=== PATIENT | male | born 1980 | race Caucasian/White ===

== ENCOUNTER → 2020-05-02 08:06 | Outpatient (BNVA) | payer SELFPAY | PROVIDERS: PCP Pediatrics; Visit Provider Internal Medicine | DX: I26.99 Other pulmonary embolism without acute cor pulmonale (principal); Z51.81 Encounter for therapeutic drug level monitoring; Z79.01 Long term (current) use of anticoagulants | CPT/HCPCS: 85610 ==

== ENCOUNTER → 2020-05-30 08:10 | Outpatient (BNVA) | payer OTHER, SELFPAY | PROVIDERS: PCP Pediatrics; Visit Provider Internal Medicine | DX: I26.99 Other pulmonary embolism without acute cor pulmonale (principal); Z51.81 Encounter for therapeutic drug level monitoring; Z79.01 Long term (current) use of anticoagulants | CPT/HCPCS: 85610; 99211 ==

== ENCOUNTER → 2020-06-27 08:01 | Outpatient (BNVA) | payer OTHER, SELFPAY | PROVIDERS: PCP Pediatrics; Visit Provider Internal Medicine | DX: I26.99 Other pulmonary embolism without acute cor pulmonale (principal); Z51.81 Encounter for therapeutic drug level monitoring; Z79.01 Long term (current) use of anticoagulants | CPT/HCPCS: 85610; 99211 ==

== ENCOUNTER → 2020-07-25 08:11 | Outpatient (BNVA) | payer OTHER, SELFPAY | PROVIDERS: PCP Pediatrics; Visit Provider Internal Medicine | DX: I26.99 Other pulmonary embolism without acute cor pulmonale (principal); Z51.81 Encounter for therapeutic drug level monitoring; Z79.01 Long term (current) use of anticoagulants | CPT/HCPCS: 85610; 99211 ==

== ENCOUNTER → 2020-08-22 08:03 | Outpatient (BNVA) | payer OTHER, SELFPAY | PROVIDERS: PCP Pediatrics; Visit Provider Internal Medicine | DX: I26.99 Other pulmonary embolism without acute cor pulmonale (principal); Z51.81 Encounter for therapeutic drug level monitoring; Z79.01 Long term (current) use of anticoagulants | CPT/HCPCS: 85610; 99211 ==

== ENCOUNTER → 2020-09-05 08:00 | Outpatient (BNVA) | payer OTHER, SELFPAY | PROVIDERS: PCP Pediatrics; Visit Provider Internal Medicine | DX: I26.99 Other pulmonary embolism without acute cor pulmonale (principal); Z51.81 Encounter for therapeutic drug level monitoring; Z79.01 Long term (current) use of anticoagulants | CPT/HCPCS: 85610; 99211 ==

== ENCOUNTER → 2020-09-19 08:02 | Outpatient (BNVA) | payer OTHER, SELFPAY | PROVIDERS: PCP Pediatrics; Visit Provider Internal Medicine | DX: I26.99 Other pulmonary embolism without acute cor pulmonale (principal); Z51.81 Encounter for therapeutic drug level monitoring; Z79.01 Long term (current) use of anticoagulants | CPT/HCPCS: 85610; 99211 ==

== ENCOUNTER → 2020-10-17 08:01 | Outpatient (BNVA) | payer OTHER, SELFPAY | PROVIDERS: PCP Pediatrics; Visit Provider Internal Medicine | DX: I26.99 Other pulmonary embolism without acute cor pulmonale (principal); Z79.01 Long term (current) use of anticoagulants; Z51.81 Encounter for therapeutic drug level monitoring | CPT/HCPCS: 85610; 99211 ==

== ENCOUNTER → 2020-11-07 08:11 | Outpatient (BNVA) | payer OTHER, SELFPAY | PROVIDERS: PCP Pediatrics; Visit Provider Internal Medicine | DX: I26.99 Other pulmonary embolism without acute cor pulmonale (principal); Z51.81 Encounter for therapeutic drug level monitoring; Z79.01 Long term (current) use of anticoagulants | CPT/HCPCS: 85610; 99211 ==

== ENCOUNTER → 2020-11-28 08:02 | Outpatient (BNVA) | payer OTHER, SELFPAY | PROVIDERS: PCP Pediatrics; Visit Provider Internal Medicine | DX: I26.99 Other pulmonary embolism without acute cor pulmonale (principal); Z51.81 Encounter for therapeutic drug level monitoring; Z79.01 Long term (current) use of anticoagulants | CPT/HCPCS: 85610; 99211 ==

== ENCOUNTER → 2020-12-26 08:00 | Outpatient (BNVA) | payer OTHER, SELFPAY | PROVIDERS: PCP Pediatrics; Visit Provider Internal Medicine | DX: I26.99 Other pulmonary embolism without acute cor pulmonale (principal); Z51.81 Encounter for therapeutic drug level monitoring; Z79.01 Long term (current) use of anticoagulants | CPT/HCPCS: 85610; 99211 ==

== ENCOUNTER → 2021-01-09 08:16 | Outpatient (BNVA) | payer OTHER, SELFPAY | PROVIDERS: PCP Pediatrics; Visit Provider Internal Medicine | DX: I26.99 Other pulmonary embolism without acute cor pulmonale (principal); Z51.81 Encounter for therapeutic drug level monitoring; Z79.01 Long term (current) use of anticoagulants | CPT/HCPCS: 85610; 99211 ==

== ENCOUNTER → 2021-02-13 08:01 | Outpatient (BNVA) | payer OTHER, SELFPAY | PROVIDERS: PCP Pediatrics; Visit Provider Internal Medicine | DX: I26.99 Other pulmonary embolism without acute cor pulmonale (principal); Z51.81 Encounter for therapeutic drug level monitoring; Z79.01 Long term (current) use of anticoagulants | CPT/HCPCS: 85610; 99211 ==

== ENCOUNTER → 2021-03-13 08:03 | Outpatient (BNVA) | payer OTHER, SELFPAY | PROVIDERS: PCP Pediatrics; Visit Provider Internal Medicine | DX: I26.99 Other pulmonary embolism without acute cor pulmonale (principal); Z51.81 Encounter for therapeutic drug level monitoring; Z79.01 Long term (current) use of anticoagulants | CPT/HCPCS: 85610; 99211 ==

== ENCOUNTER → 2021-04-10 08:01 | Outpatient (BNVA) | payer OTHER, SELFPAY | PROVIDERS: PCP Pediatrics; Visit Provider Internal Medicine | DX: I26.99 Other pulmonary embolism without acute cor pulmonale (principal); Z51.81 Encounter for therapeutic drug level monitoring; Z79.01 Long term (current) use of anticoagulants | CPT/HCPCS: 85610; 99211 ==

== ENCOUNTER → 2021-05-08 08:05 | Outpatient (BNVA) | payer OTHER, SELFPAY | PROVIDERS: PCP Pediatrics; Visit Provider Internal Medicine | DX: I26.99 Other pulmonary embolism without acute cor pulmonale (principal); Z51.81 Encounter for therapeutic drug level monitoring; Z79.01 Long term (current) use of anticoagulants | CPT/HCPCS: 85610; 99211 ==

== ENCOUNTER → 2021-05-22 08:02 | Outpatient (BNVA) | payer OTHER, SELFPAY | PROVIDERS: PCP Pediatrics; Visit Provider Internal Medicine | DX: I26.99 Other pulmonary embolism without acute cor pulmonale (principal); Z51.81 Encounter for therapeutic drug level monitoring; Z79.01 Long term (current) use of anticoagulants | CPT/HCPCS: 85610; 99211 ==

== ENCOUNTER → 2021-06-19 08:00 | Outpatient (BNVA) | payer OTHER, SELFPAY | PROVIDERS: PCP Pediatrics; Visit Provider Internal Medicine | DX: I26.99 Other pulmonary embolism without acute cor pulmonale (principal); Z51.81 Encounter for therapeutic drug level monitoring; Z79.01 Long term (current) use of anticoagulants | CPT/HCPCS: 85610; 99211 ==

== ENCOUNTER → 2021-07-21 08:10 | Outpatient (BNVA) | payer OTHER, SELFPAY | PROVIDERS: PCP Pediatrics; Visit Provider Internal Medicine | DX: I26.99 Other pulmonary embolism without acute cor pulmonale (principal); Z51.81 Encounter for therapeutic drug level monitoring; Z79.01 Long term (current) use of anticoagulants | CPT/HCPCS: 85610; 99211 ==

== ENCOUNTER → 2021-08-14 08:02 | Outpatient (BNVA) | payer OTHER, SELFPAY | PROVIDERS: PCP Pediatrics; Visit Provider Internal Medicine | DX: I26.99 Other pulmonary embolism without acute cor pulmonale (principal); Z51.81 Encounter for therapeutic drug level monitoring; Z79.01 Long term (current) use of anticoagulants | CPT/HCPCS: 85610; 99211 ==

== ENCOUNTER → 2021-09-11 08:02 | Outpatient (BNVA) | payer OTHER, SELFPAY | PROVIDERS: PCP Pediatrics; Visit Provider Internal Medicine | DX: I26.99 Other pulmonary embolism without acute cor pulmonale (principal); Z51.81 Encounter for therapeutic drug level monitoring; Z79.01 Long term (current) use of anticoagulants | CPT/HCPCS: 85610; 99211 ==

== ENCOUNTER → 2021-10-13 08:02 | Outpatient (BNVA) | payer OTHER, SELFPAY | PROVIDERS: PCP Pediatrics; Visit Provider Internal Medicine | DX: I26.99 Other pulmonary embolism without acute cor pulmonale (principal); Z51.81 Encounter for therapeutic drug level monitoring; Z79.01 Long term (current) use of anticoagulants | CPT/HCPCS: 85610; 99211 ==

== ENCOUNTER → 2021-11-13 08:07 | Outpatient (BNVA) | payer OTHER, SELFPAY | PROVIDERS: PCP Pediatrics; Visit Provider Internal Medicine | DX: I26.99 Other pulmonary embolism without acute cor pulmonale (principal); Z79.01 Long term (current) use of anticoagulants; Z51.81 Encounter for therapeutic drug level monitoring | CPT/HCPCS: 85610; 99211 ==

== ENCOUNTER → 2021-12-11 08:03 | Outpatient (BNVA) | payer OTHER, SELFPAY | PROVIDERS: PCP Pediatrics; Visit Provider Internal Medicine | DX: I26.99 Other pulmonary embolism without acute cor pulmonale (principal); Z79.01 Long term (current) use of anticoagulants; Z51.81 Encounter for therapeutic drug level monitoring | CPT/HCPCS: 85610; 99211 ==

== ENCOUNTER → 2022-01-08 08:04 | Outpatient (BNVA) | payer OTHER, SELFPAY | PROVIDERS: PCP Pediatrics; Visit Provider Internal Medicine | DX: I26.99 Other pulmonary embolism without acute cor pulmonale (principal); Z51.81 Encounter for therapeutic drug level monitoring; Z79.01 Long term (current) use of anticoagulants | CPT/HCPCS: 85610; 99211 ==

== ENCOUNTER → 2022-02-03 08:21 | Outpatient (BNVA) | payer OTHER, SELFPAY | PROVIDERS: PCP Pediatrics; Visit Provider Internal Medicine | DX: I26.99 Other pulmonary embolism without acute cor pulmonale (principal); Z51.81 Encounter for therapeutic drug level monitoring; Z79.01 Long term (current) use of anticoagulants | CPT/HCPCS: 85610; 99211 ==

== ENCOUNTER → 2022-03-03 08:00 | Outpatient (BNVA) | payer OTHER, SELFPAY | PROVIDERS: PCP Pediatrics; Visit Provider Internal Medicine | DX: I26.99 Other pulmonary embolism without acute cor pulmonale (principal); Z51.81 Encounter for therapeutic drug level monitoring; Z79.01 Long term (current) use of anticoagulants | CPT/HCPCS: 85610; 99211 ==

== ENCOUNTER → 2022-03-31 08:19 | Outpatient (BNVA) | payer OTHER, SELFPAY | PROVIDERS: PCP Pediatrics; Visit Provider Internal Medicine | DX: I26.99 Other pulmonary embolism without acute cor pulmonale (principal); Z51.81 Encounter for therapeutic drug level monitoring; Z79.01 Long term (current) use of anticoagulants | CPT/HCPCS: 85610; 99211 ==

== ENCOUNTER → 2022-04-28 08:05 | Outpatient (BNVA) | payer OTHER, SELFPAY | PROVIDERS: PCP Pediatrics; Visit Provider Internal Medicine | DX: I26.99 Other pulmonary embolism without acute cor pulmonale (principal); Z79.01 Long term (current) use of anticoagulants; Z51.81 Encounter for therapeutic drug level monitoring | CPT/HCPCS: 85610; 99211 ==

== ENCOUNTER → 2022-05-26 08:04 | Outpatient (BNVA) | payer OTHER, SELFPAY | PROVIDERS: PCP Pediatrics; Visit Provider Internal Medicine | DX: I26.99 Other pulmonary embolism without acute cor pulmonale (principal); Z79.01 Long term (current) use of anticoagulants; Z51.81 Encounter for therapeutic drug level monitoring | CPT/HCPCS: 85610; 99211 ==

== ENCOUNTER → 2022-06-23 08:06 | Outpatient (BNVA) | payer OTHER, SELFPAY | PROVIDERS: PCP Pediatrics; Visit Provider Internal Medicine | DX: I26.99 Other pulmonary embolism without acute cor pulmonale (principal); Z79.01 Long term (current) use of anticoagulants; Z51.81 Encounter for therapeutic drug level monitoring | CPT/HCPCS: 85610; 99211 ==

== ENCOUNTER → 2022-07-21 08:00 | Outpatient (BNVA) | payer BC, SELFPAY | PROVIDERS: PCP Pediatrics; Visit Provider Internal Medicine | DX: I26.99 Other pulmonary embolism without acute cor pulmonale (principal); Z51.81 Encounter for therapeutic drug level monitoring; Z79.01 Long term (current) use of anticoagulants | CPT/HCPCS: 85610; 99211 ==

== ENCOUNTER → 2022-08-18 08:05 | Outpatient (BNVA) | payer BC, SELFPAY | PROVIDERS: PCP Pediatrics; Visit Provider Internal Medicine | DX: I26.99 Other pulmonary embolism without acute cor pulmonale (principal); Z51.81 Encounter for therapeutic drug level monitoring; Z79.01 Long term (current) use of anticoagulants | CPT/HCPCS: 85610; 99211 ==

== ENCOUNTER → 2022-09-15 08:00 | Outpatient (BNVA) | payer BC, SELFPAY | PROVIDERS: PCP Pediatrics; Visit Provider Internal Medicine | DX: I26.99 Other pulmonary embolism without acute cor pulmonale (principal); Z51.81 Encounter for therapeutic drug level monitoring; Z79.01 Long term (current) use of anticoagulants | CPT/HCPCS: 85610; 99211 ==

== ENCOUNTER → 2022-10-13 08:14 | Outpatient (BNVA) | payer BC, SELFPAY | PROVIDERS: PCP Pediatrics; Visit Provider Internal Medicine | DX: I26.99 Other pulmonary embolism without acute cor pulmonale (principal); Z51.81 Encounter for therapeutic drug level monitoring; Z79.01 Long term (current) use of anticoagulants | CPT/HCPCS: 85610; 99211 ==

== ENCOUNTER → 2022-11-10 07:57 | Outpatient (BNVA) | payer BC, SELFPAY | PROVIDERS: PCP Pediatrics; Visit Provider Internal Medicine | DX: Z51.81 Encounter for therapeutic drug level monitoring (principal); Z79.01 Long term (current) use of anticoagulants; I26.99 Other pulmonary embolism without acute cor pulmonale | CPT/HCPCS: 85610; 99211 ==

== ENCOUNTER → 2022-12-08 08:07 | Outpatient (BNVA) | payer BC, SELFPAY | PROVIDERS: PCP Pediatrics; Visit Provider Internal Medicine | DX: Z51.81 Encounter for therapeutic drug level monitoring (principal); Z79.01 Long term (current) use of anticoagulants; I26.99 Other pulmonary embolism without acute cor pulmonale | CPT/HCPCS: 85610; 99211 ==

== ENCOUNTER → 2023-01-05 08:04 | Outpatient (BNVA) | payer BC, SELFPAY | PROVIDERS: PCP Pediatrics; Visit Provider Internal Medicine | DX: Z51.81 Encounter for therapeutic drug level monitoring (principal); Z79.01 Long term (current) use of anticoagulants; I26.99 Other pulmonary embolism without acute cor pulmonale | CPT/HCPCS: 85610; 99211 ==

== ENCOUNTER 2023-02-02 08:02 | Outpatient (AMB) | payer BC, SELFPAY ==
[2023-02-02 08:12] LABS: Prothrombin Time Whole Bld POC 53.1 sec (11.1-13.5); ~PT, ~INR - Anti Coag Clinic 4.4 (0.9-1.1)
--- NOTE | 2023-02-02 08:12 | MHC.OFFVISCO ---
Intake Intake Visit Reasons: Anticoagulation Allergies Sulfa (Sulfonamide Antibiotics) Allergy (Mild, Verified 02/02/23 08:07) pt not sure happened has a child Medication List - Last Reconciled 02/02/23 by Malinda Hernandez RN cetirizine (Zyrtec) 10 mg PO DAILY PRN warfarin 5 mg See Protocol PO DAILY Nursing Note INR ? out of therapeutic range Medications and supplements reviewed Patient status: no c.o, some stress Medications or supplements: no changes Diet: same Denies any signs and symptoms of bleeding or clotting or unusual bruising Bleeding, bruising, clotting discussed - aware at risk for bleeding or bruising, avoid high risk activity Nutritional guidance given: eat dark greens to lower inr no reds for 2 days Dose: hold today then cont 5mg x 7 F/U INR Date : 1 week? Patient verbalizing understanding of instructions given. Coding Level of Care Code Est Patient Level 1 Diagnoses Current use of anticoagulant therapy Z79.01 Assessment & Plan Assessment & Plan (1) Current use of anticoagulant therapy: Code(s): Z79.01 - prison (current) use of anticoagulants Category: Medical
== END 2023-02-02 08:19 | disposition home or self-care (01) ==
LOC: HO.ACS 08:02
PROVIDERS: PCP Pediatrics; Visit Provider Internal Medicine
DX: Z79.01 Long term (current) use of anticoagulants (principal)

== ENCOUNTER → 2023-02-02 08:02 | Outpatient (BNVA) | payer BC, SELFPAY | PROVIDERS: PCP Pediatrics; Visit Provider Internal Medicine | DX: Z51.81 Encounter for therapeutic drug level monitoring (principal); Z79.01 Long term (current) use of anticoagulants; I26.99 Other pulmonary embolism without acute cor pulmonale | CPT/HCPCS: 85610; 99211 ==

== ENCOUNTER 2023-02-09 08:24 | Outpatient (AMB) | payer BC, SELFPAY ==
[2023-02-09 08:29] LABS: Prothrombin Time Whole Bld POC 28.1 sec (11.1-13.5); ~PT, ~INR - Anti Coag Clinic 2.3 (0.9-1.1)
--- NOTE | 2023-02-09 08:32 | MHC.OFFVISCO ---
Intake Intake Visit Reasons: Anticoagulation Allergies Sulfa (Sulfonamide Antibiotics) Allergy (Mild, Verified 02/09/23 08:24) pt not sure happened has a child Medication List - Last Reconciled 02/09/23 by Lavern Hoyos RN cetirizine (Zyrtec) 10 mg PO DAILY PRN warfarin 5 mg See Protocol PO DAILY Nursing Note NO CP,SOB,DIET/MED CHANGESM,FALLS OR SX OF BLEEDING. CONTINUE 5MGM DAILY AND FOLLOW-UP IN 4 WEEKS. GOOD UNDERSTANDING OF DOSING INSTR. Coding Level of Care Code Est Patient Level 1 Diagnoses Current use of anticoagulant therapy Z79.01 Assessment & Plan Assessment & Plan (1) Current use of anticoagulant therapy: Code(s): Z79.01 - terminal operations supervisor (current) use of anticoagulants Category: Medical
== END 2023-02-09 08:33 | disposition home or self-care (01) ==
LOC: HO.ACS 08:24
PROVIDERS: PCP Pediatrics; Visit Provider Internal Medicine
DX: Z79.01 Long term (current) use of anticoagulants (principal)

== ENCOUNTER → 2023-02-09 08:24 | Outpatient (BNVA) | payer BC, SELFPAY | PROVIDERS: PCP Pediatrics; Visit Provider Internal Medicine | DX: Z51.81 Encounter for therapeutic drug level monitoring (principal); Z79.01 Long term (current) use of anticoagulants; I26.99 Other pulmonary embolism without acute cor pulmonale | CPT/HCPCS: 85610; 99211 ==

== ENCOUNTER 2023-03-09 08:04 | Outpatient (AMB) | payer BC, SELFPAY ==
--- NOTE | 2023-03-09 08:13 | MHC.OFFVISCO ---
Intake Intake Visit Reasons: Anticoagulation Allergies Sulfa (Sulfonamide Antibiotics) Allergy (Mild, Verified 03/09/23 08:07) pt not sure happened has a child Medication List - Last Reconciled 03/09/23 by Malinda Hernandez RN cetirizine (Zyrtec) 10 mg PO DAILY PRN warfarin 5 mg See Protocol PO DAILY Nursing Note INR: 2.9 in therapeutic range Medications and supplements reviewed- no changes No changes in health, diet, medications, or supplements, Denies any signs and symptoms of bleeding or bruising or clotting. Bleeding, bruising, clotting discussed Nutritional guidance given Dose: 5mg x 7 F/U INR: 4 weeks Patient verbalizes understanding of instructions given Coding Level of Care Code Est Patient Level 1 Diagnoses Current use of anticoagulant therapy Z79.01 Results AMB INR Fingerstick AMB INR Fingerstick 2.9 Last Edit by Malinda Hernandez RN on 03/09/23 08:15 Assessment & Plan Assessment & Plan (1) Current use of anticoagulant therapy: Code(s): Z79.01 - termite control service representative (current) use of anticoagulants Category: Medical
[2023-03-09 08:15] LABS: Prothrombin Time Whole Bld POC 35.3 sec (11.1-13.5); ~PT, ~INR - Anti Coag Clinic 2.9 (0.9-1.1)
== END 2023-03-09 08:22 | disposition home or self-care (01) ==
LOC: HO.ACS 08:04
PROVIDERS: PCP Pediatrics; Visit Provider Internal Medicine
DX: Z79.01 Long term (current) use of anticoagulants (principal)

== ENCOUNTER → 2023-03-09 08:04 | Outpatient (BNVA) | payer BC, SELFPAY | PROVIDERS: PCP Pediatrics; Visit Provider Internal Medicine | DX: I26.99 Other pulmonary embolism without acute cor pulmonale (principal); Z51.81 Encounter for therapeutic drug level monitoring; Z79.01 Long term (current) use of anticoagulants | CPT/HCPCS: 85610; 99211 ==

== ENCOUNTER 2023-04-06 08:14 | Outpatient (AMB) | payer BC, SELFPAY ==
--- NOTE | 2023-04-06 08:19 | MHC.OFFVISCO ---
Intake Intake Visit Reasons: Anticoagulation Allergies Sulfa (Sulfonamide Antibiotics) Allergy (Mild, Verified 04/06/23 08:15) pt not sure happened has a child Medication List - Last Reconciled 04/06/23 by Malinda Hernandez RN cetirizine (Zyrtec) 10 mg PO DAILY PRN warfarin 5 mg See Protocol PO DAILY Nursing Note INR 3.2-? out of therapeutic range Medications and supplements reviewed Patient status: no c.o Medications or supplements: no changes Diet: same Denies any signs and symptoms of bleeding or clotting or unusual bruising Bleeding, bruising, clotting discussed Nutritional guidance given: will eat greens to lower inr Dose: 5mg x 7 F/U INR Date : pt req 4 weeks?? Patient verbalizing understanding of instructions given. Coding Level of Care Code Est Patient Level 1 Diagnoses Current use of anticoagulant therapy Z79.01 Results AMB INR Fingerstick AMB INR Fingerstick 3.2 Last Edit by Malinda Hernandez RN on 04/06/23 08:20 Assessment & Plan Assessment & Plan (1) Current use of anticoagulant therapy: Code(s): Z79.01 - meterman (current) use of anticoagulants Category: Medical
[2023-04-06 08:20] LABS: Prothrombin Time Whole Bld POC 37.9 sec (11.1-13.5); ~PT, ~INR - Anti Coag Clinic 3.2 (0.9-1.1)
== END 2023-04-06 08:23 | disposition home or self-care (01) ==
LOC: HO.ACS 08:14
PROVIDERS: PCP Pediatrics; Visit Provider Internal Medicine
DX: Z79.01 Long term (current) use of anticoagulants (principal)

== ENCOUNTER → 2023-04-06 08:14 | Outpatient (BNVA) | payer BC, SELFPAY | PROVIDERS: PCP Pediatrics; Visit Provider Internal Medicine | DX: I26.99 Other pulmonary embolism without acute cor pulmonale (principal); Z51.81 Encounter for therapeutic drug level monitoring; Z79.01 Long term (current) use of anticoagulants | CPT/HCPCS: 85610; 99211 ==

== ENCOUNTER 2023-05-04 08:05 | Outpatient (AMB) | payer BC, SELFPAY ==
[2023-05-04 08:11] LABS: Prothrombin Time Whole Bld POC 33.8 sec (11.1-13.5); ~PT, ~INR - Anti Coag Clinic 2.8 (0.9-1.1)
--- NOTE | 2023-05-04 08:15 | MHC.OFFVISCO ---
Intake Intake Visit Reasons: Anticoagulation Allergies Sulfa (Sulfonamide Antibiotics) Allergy (Mild, Verified 05/04/23 08:06) pt not sure happened has a child Medication List - Last Reconciled 05/04/23 by Lavern Hoyos RN cetirizine (Zyrtec) 10 mg PO DAILY PRN warfarin 5 mg See Protocol PO DAILY Nursing Note NO CP,SOB,DIET/MED CHANGES,FALLS OR SX OF BLEEDING. CONTINUE PRESENT DOSE ANDF FOLLOW-UP IN 4 WEEKS. GOOD UNDERSTNDING OF DOSING INSTR. Coding Level of Care Code Est Patient Level 1 Diagnoses Current use of anticoagulant therapy Z79.01 Results AMB INR Fingerstick AMB INR Fingerstick 2.8 Last Edit by Lavern Hoyos RN on 05/04/23 08:13 Assessment & Plan Assessment & Plan (1) Current use of anticoagulant therapy: Code(s): Z79.01 - custodial (current) use of anticoagulants Category: Medical
== END 2023-05-04 08:16 | disposition home or self-care (01) ==
LOC: HO.ACS 08:05
PROVIDERS: PCP Pediatrics; Visit Provider Internal Medicine
DX: Z79.01 Long term (current) use of anticoagulants (principal)

== ENCOUNTER → 2023-05-04 08:05 | Outpatient (BNVA) | payer BC, SELFPAY | PROVIDERS: PCP Pediatrics; Visit Provider Internal Medicine | DX: I26.99 Other pulmonary embolism without acute cor pulmonale (principal); Z51.81 Encounter for therapeutic drug level monitoring; Z79.01 Long term (current) use of anticoagulants | CPT/HCPCS: 85610; 99211 ==

== ENCOUNTER 2023-06-01 07:58 | Outpatient (AMB) | payer BC, SELFPAY ==
--- NOTE | 2023-06-01 08:07 | MHC.OFFVISCO ---
Intake Intake Visit Reasons: Anticoagulation Allergies Sulfa (Sulfonamide Antibiotics) Allergy (Mild, Verified 06/01/23 07:58) pt not sure happened has a child Medication List - Last Reconciled 06/01/23 by Ani Valverde RN cetirizine (Zyrtec) 10 mg PO DAILY PRN triamcinolone acetonide 0.1% 1 appl topical BID-TID warfarin 5 mg See Protocol PO DAILY Nursing Note INR: 2.5 in therapeutic range Medications and supplements reviewed No changes in health, diet, medications, or supplements, Denies any signs and symptoms of bleeding or bruising or clotting. Bleeding, bruising, clotting discussed Nutritional guidance given Dose: keep same dose 5mg daily F/U INR: 4 weeks Patient verbalizes understanding of instructions given Coding Level of Care Code Est Patient Level 1 Results AMB INR Fingerstick AMB INR Fingerstick 2.5 Last Edit by Ani Valverde RN on 06/01/23 08:05 manual entry failed interfacing
[2023-06-01 12:08] LABS: Prothrombin Time Whole Bld POC 29.7 sec (11.1-13.5); ~PT, ~INR - Anti Coag Clinic 2.5 (0.9-1.1)
== END 2023-06-01 08:09 | disposition home or self-care (01) ==
LOC: HO.ACS 07:58
PROVIDERS: PCP Pediatrics; Visit Provider Internal Medicine
DX: Z79.01 Long term (current) use of anticoagulants (principal)

== ENCOUNTER → 2023-06-01 07:58 | Outpatient (BNVA) | payer BC, SELFPAY | PROVIDERS: PCP Pediatrics; Visit Provider Internal Medicine | DX: I26.99 Other pulmonary embolism without acute cor pulmonale (principal); Z51.81 Encounter for therapeutic drug level monitoring; Z79.01 Long term (current) use of anticoagulants | CPT/HCPCS: 85610; 99211 ==

== ENCOUNTER 2023-06-29 08:02 | Outpatient (AMB) | payer BC, SELFPAY ==
[2023-06-29 08:10] LABS: Prothrombin Time Whole Bld POC 20.1 sec (11.1-13.5); ~PT, ~INR - Anti Coag Clinic 1.7 (0.9-1.1)
--- NOTE | 2023-06-29 08:17 | MHC.OFFVISCO ---
Intake Intake Visit Reasons: Anticoagulation Allergies Sulfa (Sulfonamide Antibiotics) Allergy (Mild, Verified 06/29/23 08:03) pt not sure happened has a child Medication List - Last Reconciled 06/29/23 by Ani Valverde RN cetirizine (Zyrtec) 10 mg PO DAILY PRN losartan 25 mg PO DAILY terbinafine HCl 1% appl topical BID triamcinolone acetonide 0.1% 1 appl topical BID-TID warfarin 5 mg See Protocol PO DAILY Nursing Note INR 1.7 out of therapeutic range Medications and supplements reviewed Patient status: HAD ELEVATED B/P AND WAS PIT ON B/P MED Medications or supplements: LOSARTAN Diet: STOPPED DRINKIN GRED BULL- HE HAD 2-3 / DAY Denies any signs and symptoms of bleeding or clotting or unusual bruising Bleeding, bruising, clotting discussed Nutritional guidance given: AVOID GREENS X 2 DAYS, EAT ORANGE AND REDS TO HELP RAISE THE INR Dose: INCREASE 7.5MG X 1 DAY/ 5MG X 6 DAYS F/U INR Date : 1 WEEK ?? Patient verbalizing understanding of instructions given. Coding Level of Care Code Est Patient Level 1 Diagnoses Current use of anticoagulant therapy Z79.01 Results AMB INR Fingerstick AMB INR Fingerstick 1.7 Last Edit by Ani Valverde RN on 06/29/23 08:10 manual entry Assessment & Plan Assessment & Plan (1) Current use of anticoagulant therapy: Code(s): Z79.01 - rat exterminator (current) use of anticoagulants Category: Medical
== END 2023-06-29 08:19 | disposition home or self-care (01) ==
LOC: HO.ACS 08:02
PROVIDERS: PCP Pediatrics; Visit Provider Internal Medicine
DX: Z79.01 Long term (current) use of anticoagulants (principal)

== ENCOUNTER → 2023-06-29 08:02 | Outpatient (BNVA) | payer BC, SELFPAY | PROVIDERS: PCP Pediatrics; Visit Provider Internal Medicine | DX: I26.99 Other pulmonary embolism without acute cor pulmonale (principal); Z51.81 Encounter for therapeutic drug level monitoring; Z79.01 Long term (current) use of anticoagulants | CPT/HCPCS: 85610; 99211 ==

== ENCOUNTER 2023-07-07 08:30 | Outpatient (AMB) | payer BC, SELFPAY ==
[2023-07-07 08:41] LABS: Prothrombin Time Whole Bld POC 30.3 sec (11.1-13.5); ~PT, ~INR - Anti Coag Clinic 2.5 (0.9-1.1)
--- NOTE | 2023-07-07 08:45 | MHC.OFFVISCO ---
Intake Intake Visit Reasons: Anticoagulation Allergies Sulfa (Sulfonamide Antibiotics) Allergy (Mild, Verified 07/07/23 08:37) pt not sure happened has a child Medication List - Last Reconciled 07/07/23 by Lavern Hoyos RN cetirizine (Zyrtec) 10 mg PO DAILY PRN losartan 25 mg PO DAILY terbinafine HCl 1% appl topical BID triamcinolone acetonide 0.1% 1 appl topical BID-TID warfarin 5 mg See Protocol PO DAILY Nursing Note NO CP,SOB,DIET/MED CHANGES,FALLS OR SX OF BLEEDING. CONTINUE PRESENT DOSE AND FOLLOW-UP IN 2 WEEKS. GOOD UNDERSTANDING OF DOSING INSTR. Coding Level of Care Code Est Patient Level 1 Diagnoses Current use of anticoagulant therapy Z79.01 Assessment & Plan Assessment & Plan (1) Current use of anticoagulant therapy: Code(s): Z79.01 - [facility] (current) use of anticoagulants Category: Medical
== END 2023-07-07 08:46 | disposition home or self-care (01) ==
LOC: HO.ACS 08:30
PROVIDERS: PCP Pediatrics; Visit Provider Internal Medicine
DX: Z79.01 Long term (current) use of anticoagulants (principal)

== ENCOUNTER → 2023-07-07 08:30 | Outpatient (BNVA) | payer BC, SELFPAY | PROVIDERS: PCP Pediatrics; Visit Provider Internal Medicine | DX: I26.99 Other pulmonary embolism without acute cor pulmonale (principal); Z51.81 Encounter for therapeutic drug level monitoring; Z79.01 Long term (current) use of anticoagulants | CPT/HCPCS: 85610; 99211 ==

== ENCOUNTER 2023-07-21 08:17 | Outpatient (AMB) | payer BC, SELFPAY ==
[2023-07-21 08:31] LABS: Prothrombin Time Whole Bld POC 26.1 sec (11.1-13.5); ~PT, ~INR - Anti Coag Clinic 2.2 (0.9-1.1)
--- NOTE | 2023-07-21 08:35 | MHC.OFFVISCO ---
Intake Intake Visit Reasons: Anticoagulation Allergies Sulfa (Sulfonamide Antibiotics) Allergy (Mild, Verified 07/21/23 08:26) pt not sure happened has a child Medication List - Last Reconciled 07/21/23 by Ani Valverde RN cetirizine (Zyrtec) 10 mg PO DAILY PRN losartan 25 mg PO DAILY terbinafine HCl 1% appl topical BID triamcinolone acetonide 0.1% 1 appl topical BID-TID warfarin 5 mg See Protocol PO DAILY Nursing Note INR: 2.2 in therapeutic range Medications and supplements reviewed No changes in health, diet, medications, or supplements, Denies any signs and symptoms of bleeding or bruising or clotting. Bleeding, bruising, clotting discussed Nutritional guidance given Dose: 7.5mg x 1 day/ 5mg x 6 days F/U INR: 3 weeks Patient verbalizes understanding of instructions given Coding Level of Care Code Est Patient Level 1 Diagnoses Current use of anticoagulant therapy Z79.01 Assessment & Plan Assessment & Plan (1) Current use of anticoagulant therapy: Code(s): Z79.01 - watermaster (current) use of anticoagulants Category: Medical
== END 2023-07-21 08:36 | disposition home or self-care (01) ==
LOC: HO.ACS 08:17
PROVIDERS: PCP Pediatrics; Visit Provider Internal Medicine
DX: Z79.01 Long term (current) use of anticoagulants (principal)

== ENCOUNTER → 2023-07-21 08:17 | Outpatient (BNVA) | payer BC, SELFPAY | PROVIDERS: PCP Pediatrics; Visit Provider Internal Medicine | DX: I26.99 Other pulmonary embolism without acute cor pulmonale (principal); Z51.81 Encounter for therapeutic drug level monitoring; Z79.01 Long term (current) use of anticoagulants | CPT/HCPCS: 85610; 99211 ==

== ENCOUNTER 2023-08-11 07:57 | Outpatient (AMB) | payer BC, SELFPAY ==
[2023-08-11 08:05] LABS: Prothrombin Time Whole Bld POC 25.1 sec (11.1-13.5); ~PT, ~INR - Anti Coag Clinic 2.1 (0.9-1.1)
--- NOTE | 2023-08-11 08:06 | MHC.OFFVISCO ---
Intake Intake Visit Reasons: Anticoagulation Allergies Sulfa (Sulfonamide Antibiotics) Allergy (Mild, Verified 08/11/23 07:58) pt not sure happened has a child Medication List - Last Reconciled 08/11/23 by Ani Valverde RN cetirizine (Zyrtec) 10 mg PO DAILY PRN losartan 50 mg PO DAILY terbinafine HCl 1% appl topical BID triamcinolone acetonide 0.1% 1 appl topical BID-TID warfarin 5 mg See Protocol PO DAILY Nursing Note INR: 2.1 in therapeutic range Medications and supplements reviewed No changes in health, diet, medications, or supplements, Denies any signs and symptoms of bleeding or bruising or clotting. Bleeding, bruising, clotting discussed Nutritional guidance given Dose: 7.5MG X 1 DAY/ 5MG X 6DAYS F/U INR: 4 WEEKS Patient verbalizes understanding of instructions given Coding Level of Care Code Est Patient Level 1 Diagnoses Current use of anticoagulant therapy Z79.01 Assessment & Plan Assessment & Plan (1) Current use of anticoagulant therapy: Code(s): Z79.01 - extermination inspector (current) use of anticoagulants Category: Medical
== END 2023-08-11 08:09 | disposition home or self-care (01) ==
LOC: HO.ACS 07:57
PROVIDERS: PCP Pediatrics; Visit Provider Internal Medicine
DX: Z79.01 Long term (current) use of anticoagulants (principal)

== ENCOUNTER → 2023-08-11 07:57 | Outpatient (BNVA) | payer BC, SELFPAY | PROVIDERS: PCP Pediatrics; Visit Provider Internal Medicine | DX: I26.99 Other pulmonary embolism without acute cor pulmonale (principal); Z51.81 Encounter for therapeutic drug level monitoring; Z79.01 Long term (current) use of anticoagulants | CPT/HCPCS: 85610; 99211 ==

== ENCOUNTER 2023-09-15 08:02 | Outpatient (AMB) | payer BC, SELFPAY ==
[2023-09-15 08:08] LABS: Prothrombin Time Whole Bld POC 24.9 sec (11.1-13.5); ~PT, ~INR - Anti Coag Clinic 2.1 (0.9-1.1)
--- NOTE | 2023-09-15 08:14 | MHC.OFFVISCO ---
Intake Intake Visit Reasons: Anticoagulation Allergies Sulfa (Sulfonamide Antibiotics) Allergy (Mild, Verified 09/15/23 08:03) pt not sure happened has a child Medication List - Last Reconciled 09/15/23 by Lavern Hoyos RN cetirizine (Zyrtec) 10 mg PO DAILY PRN losartan 50 mg PO DAILY terbinafine HCl 1% appl topical BID triamcinolone acetonide 0.1% 1 appl topical BID-TID warfarin 5 mg See Protocol PO DAILY Nursing Note NO CP,SOB,DIET/MED CHANGES,FALLS OR SX OF BLEEDING. CONTINUE PRESENT DOSE AND FOLLOW-UP IN 4 WEEKS. GOOD UNDERSTANDING OF DOSING INSTR. Coding Level of Care Code Est Patient Level 1 Diagnoses Current use of anticoagulant therapy Z79.01 Assessment & Plan Assessment & Plan (1) Current use of anticoagulant therapy: Code(s): Z79.01 - shelter (current) use of anticoagulants Category: Medical
== END 2023-09-15 08:15 | disposition home or self-care (01) ==
LOC: HO.ACS 08:02
PROVIDERS: PCP Pediatrics; Visit Provider Internal Medicine
DX: Z79.01 Long term (current) use of anticoagulants (principal)

== ENCOUNTER → 2023-09-15 08:02 | Outpatient (BNVA) | payer BC, SELFPAY | PROVIDERS: PCP Pediatrics; Visit Provider Internal Medicine | DX: I26.99 Other pulmonary embolism without acute cor pulmonale (principal); Z51.81 Encounter for therapeutic drug level monitoring; Z79.01 Long term (current) use of anticoagulants | CPT/HCPCS: 85610; 99211 ==

== ENCOUNTER 2023-10-13 08:06 | Outpatient (AMB) | payer BC, SELFPAY ==
--- NOTE | 2023-10-13 08:18 | MHC.OFFVISCO ---
Intake Intake Visit Reasons: Anticoagulation Allergies Sulfa (Sulfonamide Antibiotics) Allergy (Mild, Verified 10/13/23 08:09) pt not sure happened has a child Medication List - Last Reconciled 10/13/23 by Ani Valverde RN cetirizine (Zyrtec) 10 mg PO DAILY PRN losartan 50 mg PO DAILY terbinafine HCl 1% appl topical BID triamcinolone acetonide 0.1% 1 appl topical BID-TID warfarin 5 mg See Protocol PO DAILY Nursing Note INR: 2.2 in therapeutic range Medications and supplements reviewed No changes in health, diet, medications, or supplements, Denies any signs and symptoms of bleeding or bruising or clotting. Bleeding, bruising, clotting discussed Nutritional guidance given Dose: 7.5MG X 1 DAY/ 5MG X 6DAYS F/U INR: 4 WKS Patient verbalizes understanding of instructions given Coding Level of Care Code Est Patient Level 1 Diagnoses Current use of anticoagulant therapy Z79.01 Results AMB INR Fingerstick AMB INR Fingerstick 2.2 Last Edit by Ani Valverde RN on 10/13/23 08:16 Assessment & Plan Assessment & Plan (1) Current use of anticoagulant therapy: Code(s): Z79.01 - jail (current) use of anticoagulants Category: Medical
[2023-10-13 08:51] LABS: Prothrombin Time Whole Bld POC 26.6 sec (11.1-13.5); ~PT, ~INR - Anti Coag Clinic 2.2 (0.9-1.1)
== END 2023-10-13 08:19 | disposition home or self-care (01) ==
LOC: HO.ACS 08:06
PROVIDERS: PCP Pediatrics; Visit Provider Internal Medicine
DX: Z79.01 Long term (current) use of anticoagulants (principal)

== ENCOUNTER → 2023-10-13 08:06 | Outpatient (BNVA) | payer BC, SELFPAY | PROVIDERS: PCP Pediatrics; Visit Provider Internal Medicine | DX: I26.99 Other pulmonary embolism without acute cor pulmonale (principal); Z51.81 Encounter for therapeutic drug level monitoring; Z79.01 Long term (current) use of anticoagulants | CPT/HCPCS: 85610; 99211 ==

== ENCOUNTER 2023-11-10 07:58 | Outpatient (AMB) | payer BC, SELFPAY ==
[2023-11-10 08:07] LABS: Prothrombin Time Whole Bld POC 22.5 sec (11.1-13.5); ~PT, ~INR - Anti Coag Clinic 1.9 (0.9-1.1)
--- NOTE | 2023-11-10 08:11 | MHC.OFFVISCO ---
Intake Intake Visit Reasons: Anticoagulation Allergies Sulfa (Sulfonamide Antibiotics) Allergy (Mild, Verified 11/10/23 08:02) pt not sure happened has a child Medication List - Last Reconciled 11/10/23 by Lavern Hoyos RN cetirizine (Zyrtec) 10 mg PO DAILY PRN losartan 50 mg PO DAILY terbinafine HCl 1% appl topical BID triamcinolone acetonide 0.1% 1 appl topical BID-TID warfarin 5 mg See Protocol PO DAILY Nursing Note PT.HAS HAD LARGER THAN USUAL AMTS.OF GREENS NO CP,SOB,DIET/MED CHANGES,FALLS OR SX OF BLEEDING. 7.5MGM TODAY THEN RESUME USUAL DOSE AND FOLLOW-UP IN 4 WEEKS NO GREENS TODAY Coding Level of Care Code Est Patient Level 1 Diagnoses Current use of anticoagulant therapy Z79.01 Assessment & Plan Assessment & Plan (1) Current use of anticoagulant therapy: Code(s): Z79.01 - [facility] (current) use of anticoagulants Category: Medical
== END 2023-11-10 08:12 | disposition home or self-care (01) ==
LOC: HO.ACS 07:58
PROVIDERS: PCP Pediatrics; Visit Provider Internal Medicine
DX: Z79.01 Long term (current) use of anticoagulants (principal)

== ENCOUNTER → 2023-11-10 07:58 | Outpatient (BNVA) | payer BC, SELFPAY | PROVIDERS: PCP Pediatrics; Visit Provider Internal Medicine | DX: I26.99 Other pulmonary embolism without acute cor pulmonale (principal); Z51.81 Encounter for therapeutic drug level monitoring; Z79.01 Long term (current) use of anticoagulants | CPT/HCPCS: 85610; 99211 ==

== ENCOUNTER 2023-12-08 08:00 | Outpatient (AMB) | payer BC, SELFPAY ==
[2023-12-08 08:10] LABS: Prothrombin Time Whole Bld POC 22.6 sec (11.1-13.5); ~PT, ~INR - Anti Coag Clinic 1.9 (0.9-1.1)
--- NOTE | 2023-12-08 08:14 | MHC.OFFVISCO ---
Intake Intake Visit Reasons: Anticoagulation Allergies Sulfa (Sulfonamide Antibiotics) Allergy (Mild, Verified 12/08/23 08:04) pt not sure happened has a child Medication List - Last Reconciled 12/08/23 by Keiry Coker RN cetirizine (Zyrtec) 10 mg PO DAILY PRN losartan 50 mg PO DAILY terbinafine HCl 1% appl topical BID triamcinolone acetonide 0.1% 1 appl topical BID-TID warfarin 5 mg See Protocol PO DAILY Nursing Note INR 1.9?out of therapeutic range 2-3 Medications and supplements reviewed Patient status: well Medications or supplements: no changes Diet: pt states he lost weight and is eating better Denies any signs and symptoms of bleeding or clotting or unusual bruising Bleeding, bruising, clotting discussed Nutritional guidance given: to avoid greens today then balance foods that raise and foods that lower the INR. Dose: increased weekly dose to 7.5mg X 2 days and 5mg X 5 days F/U INR Date : 2 weeks?? Patient verbalizing understanding of instructions given. Coding Level of Care Code Est Patient Level 1 Diagnoses Current use of anticoagulant therapy Z79.01 Results AMB INR Fingerstick AMB INR Fingerstick 1.8 Last Edit by Keiry Coker RN on 12/08/23 08:12 interface delay AMB INR Fingerstick AMB INR Fingerstick 1.9 Last Edit by Keiry Coker RN on 12/08/23 08:12 interface delay Assessment & Plan Assessment & Plan (1) Current use of anticoagulant therapy: Code(s): Z79.01 - snf (current) use of anticoagulants Category: Medical
== END 2023-12-08 08:17 | disposition home or self-care (01) ==
LOC: HO.ACS 08:00
PROVIDERS: PCP Pediatrics; Visit Provider Internal Medicine
DX: Z79.01 Long term (current) use of anticoagulants (principal)

== ENCOUNTER → 2023-12-08 08:00 | Outpatient (BNVA) | payer BC, SELFPAY | PROVIDERS: PCP Pediatrics; Visit Provider Internal Medicine | DX: I26.99 Other pulmonary embolism without acute cor pulmonale (principal); Z51.81 Encounter for therapeutic drug level monitoring; Z79.01 Long term (current) use of anticoagulants | CPT/HCPCS: 85610; 99211 ==

== ENCOUNTER → 2023-12-23 08:18 | Outpatient (BNVA) | payer BC, SELFPAY | PROVIDERS: PCP Pediatrics; Visit Provider Internal Medicine | DX: I26.99 Other pulmonary embolism without acute cor pulmonale (principal); Z51.81 Encounter for therapeutic drug level monitoring; Z79.01 Long term (current) use of anticoagulants | CPT/HCPCS: 85610; 99211 ==

== ENCOUNTER 2024-01-20 08:02 | Outpatient (AMB) | payer BC, SELFPAY ==
[2024-01-20 08:10] LABS: Prothrombin Time Whole Bld POC 25.8 sec (11.1-13.5); ~PT, ~INR - Anti Coag Clinic 2.2 (0.9-1.1)
--- NOTE | 2024-01-20 08:15 | MHC.OFFVISCO ---
Intake Intake Visit Reasons: Anticoagulation Allergies Sulfa (Sulfonamide Antibiotics) Allergy (Mild, Verified 01/20/24 08:03) pt not sure happened has a child Medication List - Last Reconciled 01/20/24 by Ani Valverde RN cetirizine (Zyrtec) 10 mg PO DAILY PRN losartan 75 mg PO DAILY warfarin 5 mg See Protocol PO DAILY Nursing Note INR: 2.2 in therapeutic range Medications and supplements reviewed No changes in health, diet, medications, or supplements, Denies any signs and symptoms of bleeding or bruising or clotting. Bleeding, bruising, clotting discussed Nutritional guidance given Dose: 7.5MG X 2 DAYS/ 5MG X 5 DAYS F/U INR: 1 MONTH Patient verbalizes understanding of instructions given Questionnaires HAS-BLED Does the patient had uncontrolled Hypertension?: No Does the patient have renal disease?: No Does the patient have liver disease?: No Does the patient have a history of stroke?: No Has the patient had major bleeding or predisposition to bleeding?: No Does the patient have labile INRs?: No Is the patient over 65 years of age?: No Is the patient on medications that gives them a predisposition to bleeding?: Yes Does the patient use alcohol?: No HAS-BLED Score: 1 CHADSVASC Age: <65 Gender: Male Does the patient have a history of CHF?: No Does the patient have a history of Hypertension?: Yes Does the patient have a history of Stroke/TIA/Thromboembolism?: No Does the patient have a history of Vascular Disease (prior [place], PAD or aortic plaque)?: No Does the patient have a history of Diabetes?: No CHADS VACS Score: 1 Cristina Prediction Score Rsk VTE Active Cancer: No Previous VTE, excluding superficial vein thrombosis: Yes Reduced mobility: No Already known Thrombophilic Condition: Yes With-in last month Trauma and/or Surgery: No Elderly 70 year or older: No Heart and/or Respiratory Failure: No Acute Myocardial infarction and/or Ischemic Stroke: No Acute Infection and/or Rheumatologic Disorder: No Obesity (BMI 30 or greater): Yes Ongoing Hormonal Treatment: No Score: 7 Cristina Score less than 4; Low Risk of VTE Cristina Score 4 or greater; High Risk of VTE Coding Level of Care Code Est Patient Level 1 Diagnoses Current use of anticoagulant therapy Z79.01 Results AMB INR Fingerstick AMB INR Fingerstick 2.2 Last Edit by Ani Valverde RN on 01/20/24 08:12 MANUAL ENTRY Assessment & Plan Assessment & Plan (1) Current use of anticoagulant therapy: Code(s): Z79.01 - intermediate school teacher (current) use of anticoagulants Category: Medical
== END 2024-01-20 08:18 | disposition home or self-care (01) ==
LOC: HO.ACS 08:02
PROVIDERS: PCP Pediatrics; Visit Provider Internal Medicine
DX: Z79.01 Long term (current) use of anticoagulants (principal)

== ENCOUNTER → 2024-01-20 08:02 | Outpatient (BNVA) | payer BC, SELFPAY | PROVIDERS: PCP Pediatrics; Visit Provider Internal Medicine | DX: I26.99 Other pulmonary embolism without acute cor pulmonale (principal); Z51.81 Encounter for therapeutic drug level monitoring; Z79.01 Long term (current) use of anticoagulants | CPT/HCPCS: 85610; 99211 ==

== ENCOUNTER 2024-02-17 08:14 | Outpatient (AMB) | payer BC, SELFPAY ==
[2024-02-17 08:19] LABS: ~PT, ~INR - Anti Coag Clinic 2.3 (0.9-1.1)
--- NOTE | 2024-02-17 08:25 | MHC.OFFVISCO ---
Intake Intake Visit Reasons: Anticoagulation Allergies Sulfa (Sulfonamide Antibiotics) Allergy (Mild, Verified 02/17/24 08:18) pt not sure happened has a child Medication List - Last Reconciled 02/17/24 by Ani Valverde RN cetirizine (Zyrtec) 10 mg PO DAILY PRN losartan 75 mg PO DAILY warfarin 5 mg See Protocol PO DAILY Nursing Note INR: 2.3 in therapeutic range Medications and supplements reviewed No changes in health, diet, medications, or supplements, Denies any signs and symptoms of bleeding or bruising or clotting. Bleeding, bruising, clotting discussed Nutritional guidance given Dose: keep same 7.5mg x 2 days/ 5mg x 5 days F/U INR: 1 month Patient verbalizes understanding of instructions given Coding Level of Care Code Est Patient Level 1 Diagnoses Current use of anticoagulant therapy Z79.01 Assessment & Plan Assessment & Plan (1) Current use of anticoagulant therapy: Code(s): Z79.01 - senior care (current) use of anticoagulants Category: Medical
== END 2024-02-17 08:27 | disposition home or self-care (01) ==
LOC: HO.ACS 08:14
PROVIDERS: PCP Pediatrics; Visit Provider Internal Medicine
DX: Z79.01 Long term (current) use of anticoagulants (principal)

== ENCOUNTER → 2024-02-17 08:14 | Outpatient (BNVA) | payer BC, SELFPAY | PROVIDERS: PCP Pediatrics; Visit Provider Internal Medicine | DX: I26.99 Other pulmonary embolism without acute cor pulmonale (principal); Z51.81 Encounter for therapeutic drug level monitoring; Z79.01 Long term (current) use of anticoagulants | CPT/HCPCS: 85610; 99211 ==

== ENCOUNTER 2024-03-16 08:06 | Outpatient (AMB) | payer BC, SELFPAY ==
[2024-03-16 08:18] LABS: Prothrombin Time Whole Bld POC 26.4 sec (11.1-13.5); ~PT, ~INR - Anti Coag Clinic 2.2 (0.9-1.1)
--- NOTE | 2024-03-16 08:21 | MHC.OFFVISCO ---
Intake Intake Visit Reasons: Anticoagulation Allergies Sulfa (Sulfonamide Antibiotics) Allergy (Mild, Verified 03/16/24 08:11) pt not sure happened has a child Medication List - Last Reconciled 03/16/24 by Lavern Hoyos RN cetirizine (Zyrtec) 10 mg PO DAILY PRN losartan 75 mg PO DAILY warfarin 5 mg See Protocol PO DAILY Nursing Note NO CP,SOB,DIET/MED CHANGES,FALLS OR SX O BLEEDING. CONTINUE PRESENT DOSE AND FOLLIW-UP IN 4 WEEKS. GOOD UNDERSTANDING OF DOSING INSTR. Coding Level of Care Code Est Patient Level 1 Diagnoses Current use of anticoagulant therapy Z79.01 Results AMB INR Fingerstick AMB INR Fingerstick 2.2 Last Edit by Lavern Hoyos RN on 03/16/24 08:18 Assessment & Plan Assessment & Plan (1) Current use of anticoagulant therapy: Code(s): Z79.01 - marine oil terminal superintendent (current) use of anticoagulants Category: Medical
== END 2024-03-16 08:23 | disposition home or self-care (01) ==
LOC: HO.ACS 08:06
PROVIDERS: PCP Pediatrics; Visit Provider Internal Medicine
DX: Z79.01 Long term (current) use of anticoagulants (principal)

== ENCOUNTER → 2024-03-16 08:06 | Outpatient (BNVA) | payer BC, SELFPAY | PROVIDERS: PCP Pediatrics; Visit Provider Internal Medicine | DX: I26.99 Other pulmonary embolism without acute cor pulmonale (principal); Z79.01 Long term (current) use of anticoagulants; Z51.81 Encounter for therapeutic drug level monitoring | CPT/HCPCS: 85610; 99211 ==

== ENCOUNTER 2024-04-13 08:03 | Outpatient (AMB) | payer BC, SELFPAY ==
--- NOTE | 2024-04-13 08:20 | MHC.OFFVISCO ---
Intake Intake Visit Reasons: Anticoagulation Allergies Sulfa (Sulfonamide Antibiotics) Allergy (Mild, Verified 04/13/24 08:07) pt not sure happened has a child Medication List - Last Reconciled 04/13/24 by Lavern Hoyos RN cetirizine (Zyrtec) 10 mg PO DAILY PRN losartan 75 mg PO DAILY warfarin 5 mg See Protocol PO DAILY Nursing Note NO CP,SOB,DIET/MED CHANGES,FALS OR SX OF BLEEDING. CONTINUE PRESENT DOSE AND FOLLOW-UP IN 4 WEKS.'GOOD UNDERSTANDING OF DOSING INSTR. Coding Level of Care Code Est Patient Level 1 Diagnoses Current use of anticoagulant therapy Z79.01 Results AMB INR Fingerstick AMB INR Fingerstick 2.3 Last Edit by Lavern Hoyos RN on 04/13/24 08:14 Assessment & Plan Assessment & Plan (1) Current use of anticoagulant therapy: Code(s): Z79.01 - intermediate (current) use of anticoagulants Category: Medical
[2024-04-13 14:39] LABS: Prothrombin Time Whole Bld POC 27.7 sec (11.1-13.5); ~PT, ~INR - Anti Coag Clinic 2.3 (0.9-1.1)
== END 2024-04-13 08:21 | disposition home or self-care (01) ==
LOC: HO.ACS 08:03
PROVIDERS: PCP Pediatrics; Visit Provider Internal Medicine
DX: Z79.01 Long term (current) use of anticoagulants (principal)

== ENCOUNTER → 2024-04-13 08:03 | Outpatient (BNVA) | payer BC, SELFPAY | PROVIDERS: PCP Pediatrics; Visit Provider Internal Medicine | DX: I26.99 Other pulmonary embolism without acute cor pulmonale (principal); Z79.01 Long term (current) use of anticoagulants; Z51.81 Encounter for therapeutic drug level monitoring | CPT/HCPCS: 85610; 99211 ==

== ENCOUNTER 2024-05-11 08:12 | Outpatient (AMB) | payer BC, SELFPAY ==
--- NOTE | 2024-05-11 08:24 | MHC.OFFVISCO ---
Intake Intake Visit Reasons: Anticoagulation Allergies Sulfa (Sulfonamide Antibiotics) Allergy (Mild, Verified 05/11/24 08:13) pt not sure happened has a child Medication List - Last Reconciled 05/11/24 by Ani Valverde RN cetirizine (Zyrtec) 10 mg PO DAILY PRN losartan 75 mg PO DAILY warfarin 5 mg See Protocol PO DAILY Nursing Note INR: 2.7 in therapeutic range Medications and supplements reviewed- STARTED NEW MVI ONE A DAY MEN'S 2 WEEKS AGO No changes in health, diet, medications, , Denies any signs and symptoms of bleeding or bruising or clotting. Bleeding, bruising, clotting discussed Nutritional guidance given Dose: KEEP SAME DOSE 7.5MG X 2 DAYS/ 5MG X 5 DAYS F/U INR: 1 MONTH Patient verbalizes understanding of instructions given Coding Level of Care Code Est Patient Level 1 Diagnoses Current use of anticoagulant therapy Z79.01 Results AMB INR Fingerstick AMB INR Fingerstick 2.7 Last Edit by Ani Valverde RN on 05/11/24 08:26 MANUAL ENTRY Assessment & Plan Assessment & Plan (1) Current use of anticoagulant therapy: Code(s): Z79.01 - bed bug exterminator (current) use of anticoagulants Category: Medical Medications: New multivit,davina,lh-[id number]-lycop 240-25-300 mcg (One A Day Men Complete) PO
[2024-05-11 09:05] LABS: Prothrombin Time Whole Bld POC 32.4 sec (11.1-13.5); ~PT, ~INR - Anti Coag Clinic 2.7 (0.9-1.1)
== END 2024-05-11 08:28 | disposition home or self-care (01) ==
LOC: HO.ACS 08:12
PROVIDERS: PCP Pediatrics; Visit Provider Internal Medicine
DX: Z79.01 Long term (current) use of anticoagulants (principal)

== ENCOUNTER → 2024-05-11 08:12 | Outpatient (BNVA) | payer BC, SELFPAY | PROVIDERS: PCP Pediatrics; Visit Provider Internal Medicine | DX: I26.99 Other pulmonary embolism without acute cor pulmonale (principal); Z79.01 Long term (current) use of anticoagulants; Z51.81 Encounter for therapeutic drug level monitoring | CPT/HCPCS: 85610; 99211 ==

== ENCOUNTER 2024-06-15 08:02 | Outpatient (AMB) | payer BC, SELFPAY ==
[2024-06-15 08:08] LABS: Prothrombin Time Whole Bld POC 25.2 sec (11.1-13.5); ~PT, ~INR - Anti Coag Clinic 2.1 (0.9-1.1)
--- NOTE | 2024-06-15 08:11 | MHC.OFFVISCO ---
Intake Intake Visit Reasons: Anticoagulation Allergies Sulfa (Sulfonamide Antibiotics) Allergy (Mild, Verified 06/15/24 08:03) pt not sure happened has a child Medication List - Last Reconciled 06/15/24 by Keiry Coker, DAVI cetirizine (Zyrtec) 10 mg PO DAILY PRN losartan 75 mg PO DAILY multivit,davina,ke-[id number]-lycop 240-25-300 mcg (One A Day Men Complete) tabs PO warfarin 5 mg See Protocol PO DAILY Nursing Note INR: 2.1 in therapeutic range 2-3 Medications and supplements reviewed No changes in health, diet, medications, or supplements, Denies any signs and symptoms of bleeding or bruising or clotting. Bleeding, bruising, clotting discussed Nutritional guidance given Dose: 5mg X 5 days and 7.5mg X 2 days F/U INR: 4 weeks Patient verbalizes understanding of instructions given Coding Level of Care Code Est Patient Level 1 Diagnoses Current use of anticoagulant therapy Z79.01 Assessment & Plan Assessment & Plan (1) Current use of anticoagulant therapy: Code(s): Z79.01 - group home (current) use of anticoagulants Category: Medical
== END 2024-06-15 08:13 | disposition home or self-care (01) ==
LOC: HO.ACS 08:02
PROVIDERS: PCP Pediatrics; Visit Provider Internal Medicine
DX: Z79.01 Long term (current) use of anticoagulants (principal)

== ENCOUNTER → 2024-06-15 08:02 | Outpatient (BNVA) | payer BC, SELFPAY | PROVIDERS: PCP Pediatrics; Visit Provider Internal Medicine | DX: I26.99 Other pulmonary embolism without acute cor pulmonale (principal); Z79.01 Long term (current) use of anticoagulants; Z51.81 Encounter for therapeutic drug level monitoring | CPT/HCPCS: 85610; 99211 ==

== ENCOUNTER 2024-07-13 08:03 | Outpatient (AMB) | payer BC, SELFPAY ==
[2024-07-13 08:10] LABS: Prothrombin Time Whole Bld POC 31.7 sec (11.1-13.5); ~PT, ~INR - Anti Coag Clinic 2.6 (0.9-1.1)
--- NOTE | 2024-07-13 08:12 | MHC.OFFVISCO ---
Intake Intake Visit Reasons: Anticoagulation Allergies Sulfa (Sulfonamide Antibiotics) Allergy (Mild, Verified 07/13/24 08:04) pt not sure happened has a child Medication List - Last Reconciled 07/13/24 by Keiry Coker, DAVI cetirizine (Zyrtec) 10 mg PO DAILY PRN losartan 75 mg PO DAILY multivit,davina,zu-[id number]-S4-lycop 240-25-300 mcg (One A Day Men Complete) tabs PO warfarin 5 mg See Protocol PO DAILY Nursing Note INR: 2.6 in therapeutic range of 2-3 Medications and supplements reviewed No changes in health, diet, medications, or supplements, Denies any signs and symptoms of bleeding or bruising or clotting. Bleeding, bruising, clotting discussed Nutritional guidance given Dose: 5mg X 5 days and 7.5mg X 2 days F/U INR: 4 weeks Patient verbalizes understanding of instructions given Coding Level of Care Code Est Patient Level 1 Diagnoses Current use of anticoagulant therapy Z79.01 Assessment & Plan Assessment & Plan (1) Current use of anticoagulant therapy: Code(s): Z79.01 - termite control servicer (current) use of anticoagulants Category: Medical
== END 2024-07-13 08:14 | disposition home or self-care (01) ==
LOC: HO.ACS 08:03
PROVIDERS: PCP Pediatrics; Visit Provider Internal Medicine
DX: Z79.01 Long term (current) use of anticoagulants (principal)

== ENCOUNTER → 2024-07-13 08:03 | Outpatient (BNVA) | payer BC, SELFPAY | PROVIDERS: PCP Pediatrics; Visit Provider Internal Medicine | DX: I26.99 Other pulmonary embolism without acute cor pulmonale (principal); Z79.01 Long term (current) use of anticoagulants; Z51.81 Encounter for therapeutic drug level monitoring | CPT/HCPCS: 85610; 99211 ==

== ENCOUNTER 2024-08-10 07:59 | Outpatient (AMB) | payer BC, SELFPAY ==
--- OUTSIDE RECORDS SUMMARY | 2024-08-10 08:01 | XMS_ITS | Clinical Summary ---
Author Organization Formerly [facility] Address [address] [place] [address] Care Team Providers Care Ordnance Equipment Worker Name Role Phone Jack Quijano MD Primary Care Provider + [phone] Allergies Active Allergy Reactions Criticality Noted Date Comments Sulfa Antibiotics Other (See Comments) 08/29/19 19 Unknown, since was younger Medications Medication Sig Dispensed Refills Start Date End Date Status warfarin (COUMADIN) 5 MG tablet Take 5 mg by mouth daily at the same time. Active predniSONE (DELTASONE) 20 MG tabletIndications:Ole cranon bursitis of left elbow Take 3 tablets for 3 days, then 2 tablets for 3 days, and then 1 tablet for 3 days. Take with food. 18 tablet 08/29/2018 Active Active Problems No known active problems Social History Tobacco Use Types Packs/Day Years Used Date Smoking Tobacco: Never Smokeless Tobacco: Never Alcohol Use Standard Drinks/Week Comments Yes 0 (1 standard drink = 0.6 oz pur e alcohol) Sex and Gender Information Value Date Recorded Sex Assigned at Not on file Gender Identity Not on file Sexual Orientation Not on file Last Filed Vital Signs Vital Sign Reading Time Taken Comments Blood Pressure 160/116 08/29/2018 11:58 AM EST Pulse 67 08/29/2018 11:58 AM EST Temperature 36.4 ??C (97.5 ??F) 08/29/2018 11:[address] Respiratory Rate - - Oxygen Saturation 98% 08/29/2018 11:58 AM EST Inhaled Oxygen Concentration - - Weight 99.8 kg (220 lb) 08/29/2018 11:58 AM EST Height 182.9 cm (6') 08/29/2018 11:58 AM EST Body Mass Index 29.84 08/29/2018 11:58 AM EST Plan of Treatment Health Maintenance Due Date Last Done Comments Hepatitis C Virus Screening 1978 HIV Screening 1991 DTaP/Tdap/Td Vaccines (1 - Tdap) 1997 Hepatitis B Vaccines (1 of 3 - 19+ 3-dose series) 1997 Colonoscopy 2023 Influenza Vaccine 02/09/2024 COVID-19 Vaccine ( - 2023-2 5 season) 2024 HPV Vaccines Aged Out No longer eligi ble based on patient's age to complete this topic Pneumococcal Vaccine: Pediat mauro (0-5 Years) and At-Risk Patients (6 to 49 Years) Aged Out No longer eligible b ased on patient's age to complete this topic Care Teams Ordnance Equipment Worker Relationship Specialty Start Date End Date Jack Quijano MD [address] [place] [address] PCP - General 08/29/18
--- OUTSIDE RECORDS SUMMARY | 2024-08-10 08:01 | XMS_ITS | Clinical Summary ---
Author Organization [facility] Address [address] [place] [address] Care Team Providers Care Geophysical Prospecting Surveyor Name Role Phone Unavailable Primary Care Provider Unavailabl e Immunizations Name Administration Dates Next Due Covid-19 (Pfizer) Dilution Required 11/20/2020,0 10/29/2020 Social History Tobacco Use Types Packs/Day Years Used Date Smoking Tobacco: Never Assessed Sex and Gender Information Value Date Recorded Sex Assigned at Not on file Gender Identity Not on file Sexual Orientation Not on file Job Start Date Occupation Industry Not on file Not on file Not on file Plan of Treatment Health Maintenance Due Date Last Done Comments Hepatitis B Vaccines (1 of 3 - 3-dose series) 1978 Hepatitis C Screening 1978 Depression Screening 1990 Preventative Health Evaluation 1996 Colon Cancer Screening (Colonoscopy) 2023 DTap / Tdap / Td (2 - Td or Tdap) 07/16/2023 07/16/2013 COVID-19 Vaccine (2023-2 5 season) 2024 11/20/2020, 10/29/2020 Influenza Vaccine (#1) 2024 07/16/2013 Pneumococcal Vaccine Aged Out No long er eligible based on patient's age to complete this topic RSV Ped < 20 months Aged Out No longe r eligible based on patient's age to complete this topic
--- NOTE | 2024-08-10 08:14 | MHC.OFFVISCO ---
Intake Intake Visit Reasons: Anticoagulation Allergies Sulfa (Sulfonamide Antibiotics) Allergy (Mild, Verified 08/10/24 08:04) pt not sure happened has a child Medication List - Last Reconciled 08/10/24 by Keiry Coker, DAVI cetirizine (Zyrtec) 10 mg PO DAILY PRN losartan 75 mg PO DAILY multivit,davina,cw-rpalj-N4-lycop 240-25-300 mcg (One A Day Men Complete) tabs PO warfarin 5 mg See Protocol PO DAILY Nursing Note INR: 1.7 in therapeutic range of 2-3 Medications and supplements reviewed No changes in health, diet, medications, or supplements, Denies any signs and symptoms of bleeding or bruising or clotting. Bleeding, bruising, clotting discussed Nutritional guidance given to avoid greens today Dose: increase today's dose to 7.5mg (5mg) then resume usual dose of 5mg X 5 days and 7.5mg X 2days F/U INR: 4 weeks Patient verbalizes understanding of instructions given Coding Level of Care Code Est Patient Level 1 Diagnoses Current use of anticoagulant therapy Z79.01 Results AMB INR Fingerstick AMB INR Fingerstick 1.7 Last Edit by Keiry Coker RN on 08/10/24 08:11 interface delay Assessment & Plan Assessment & Plan (1) Current use of anticoagulant therapy: Code(s): Z79.01 - termite exterminator (current) use of anticoagulants Category: Medical
[2024-08-10 08:21] LABS: Prothrombin Time Whole Bld POC 20.2 sec (11.1-13.5); ~PT, ~INR - Anti Coag Clinic 1.7 (0.9-1.1)
== END 2024-08-10 08:16 | disposition home or self-care (01) ==
LOC: HO.ACS 07:59
PROVIDERS: PCP Pediatrics; Visit Provider Internal Medicine
DX: Z79.01 Long term (current) use of anticoagulants (principal)

== ENCOUNTER 2024-09-07 08:03 | Outpatient (AMB) | payer BC, SELFPAY ==
--- OUTSIDE RECORDS SUMMARY | 2024-09-07 08:08 | XMS_ITS | Clinical Summary ---
Author Organization [facility] Address [address] [place] [address] Care Team Providers Care Pharmacy Technologist Name Role Phone Jack Quijano MD Primary Care Provider + [phone] Allergies Active Allergy Reactions Criticality Noted Date [...] age to complete this topic Care Teams Pharmacy Technologist Relationship Specialty Start Date End Date Jack Quijano MD [address] [place] [address] PCP - General 08/29/18
--- OUTSIDE RECORDS SUMMARY | 2024-09-07 08:08 | XMS_ITS | Clinical Summary ---
Author Organization [facility] Address [address] [place] [address] Care Team Providers Care Battery Assembler Plastic Name Role Phone Unavailable Primary Care Provider [...]
[2024-09-07 08:11] LABS: Prothrombin Time Whole Bld POC 25.7 sec (11.1-13.5); ~PT, ~INR - Anti Coag Clinic 2.1 (0.9-1.1)
--- NOTE | 2024-09-07 08:16 | MHC.OFFVISCO ---
Intake Intake Visit Reasons: Anticoagulation Allergies Sulfa (Sulfonamide Antibiotics) Allergy (Mild, Verified 09/07/24 08:04) pt not sure happened has a child Medication List - Last Reconciled 09/07/24 by Ani Valverde RN cetirizine (Zyrtec) 10 mg PO DAILY PRN losartan 75 mg PO DAILY multivit,davina,vs-wgjuj-Q9-lycop 240-25-300 mcg (One A Day Men Complete) tabs PO warfarin 5 mg See Protocol PO DAILY Nursing Note INR: 2.1 in therapeutic range Medications and supplements reviewed No changes in health, diet, medications, or supplements, Denies any signs and symptoms of bleeding or bruising or clotting. Bleeding, bruising, clotting discussed Nutritional guidance given Dose: 7.5MG X 2 DAYS/ 5MG X 5 DAYS F/U INR:1 MONTH Patient verbalizes understanding of instructions given Coding Level of Care Code Est Patient Level 1 Diagnoses Current use of anticoagulant therapy Z79.01 Results AMB INR Fingerstick AMB INR Fingerstick 2.1 Last Edit by Ani Valverde RN on 09/07/24 08:12 manual entry Assessment & Plan Assessment & Plan (1) Current use of anticoagulant therapy: Code(s): Z79.01 - supervisor intermediates (current) use of anticoagulants Category: Medical
== END 2024-09-07 08:18 | disposition home or self-care (01) ==
LOC: HO.ACS 08:03
PROVIDERS: PCP Pediatrics; Visit Provider Internal Medicine
DX: Z79.01 Long term (current) use of anticoagulants (principal)

== ENCOUNTER → 2024-09-07 08:03 | Outpatient (BNVA) | payer BC, SELFPAY | PROVIDERS: PCP Pediatrics; Visit Provider Internal Medicine | DX: I26.99 Other pulmonary embolism without acute cor pulmonale (principal); Z79.01 Long term (current) use of anticoagulants; Z51.81 Encounter for therapeutic drug level monitoring | CPT/HCPCS: 85610; 99211 ==

== ENCOUNTER 2024-10-05 08:03 | Outpatient (AMB) | payer BC, SELFPAY ==
--- NOTE | 2024-10-05 08:12 | MHC.OFFVISCO ---
Intake Intake Visit Reasons: Anticoagulation Allergies Sulfa (Sulfonamide Antibiotics) Allergy (Mild, Verified 10/05/24 08:04) pt not sure happened has a child Medication List - Last Reconciled 10/05/24 by Keiry Coker RN cetirizine (Zyrtec) 10 mg PO DAILY PRN losartan 75 mg PO DAILY multivit,davina,ea-hwcix-N4-lycop 240-25-300 mcg (One A Day Men Complete) tabs PO warfarin 5 mg See Protocol PO DAILY Nursing Note INR: 2.5 in therapeutic range of 2-3 Medications and supplements reviewed No changes in health, diet, medications, or supplements, Denies any signs and symptoms of bleeding or bruising or clotting. Bleeding, bruising, clotting discussed Nutritional guidance given Dose: 5mg X 5 days and 7.5mg X 2 days (Mon & ) F/U INR: 4 weeks Patient verbalizes understanding of instructions given Coding Level of Care Code Est Patient Level 1 Diagnoses Current use of anticoagulant therapy Z79.01 Results AMB INR Fingerstick AMB INR Fingerstick 2.5 Last Edit by Keiry Coker, DAVI on 10/05/24 08:14 interface delay AMB INR Fingerstick AMB INR Fingerstick 2.5 Last Edit by Keiry Coker RN on 10/05/24 08:15 interface delay Assessment & Plan Assessment & Plan (1) Current use of anticoagulant therapy: Code(s): Z79.01 - leisure travel agent (current) use of anticoagulants Category: Medical
[2024-10-05 08:14] LABS: Prothrombin Time Whole Bld POC 29.9 sec (11.1-13.5); ~PT, ~INR - Anti Coag Clinic 2.5 (0.9-1.1)
== END 2024-10-05 08:17 | disposition home or self-care (01) ==
LOC: HO.ACS 08:03
PROVIDERS: PCP Pediatrics; Visit Provider Internal Medicine Medical Oncology
DX: Z79.01 Long term (current) use of anticoagulants (principal)

== ENCOUNTER → 2024-10-05 08:03 | Outpatient (BNVA) | payer BC, SELFPAY | PROVIDERS: PCP Pediatrics; Visit Provider Internal Medicine Medical Oncology | DX: I26.99 Other pulmonary embolism without acute cor pulmonale (principal); Z51.81 Encounter for therapeutic drug level monitoring; Z79.01 Long term (current) use of anticoagulants | CPT/HCPCS: 85610; 99211 ==

== ENCOUNTER 2024-11-02 08:01 | Outpatient (AMB) | payer BC, SELFPAY ==
--- OUTSIDE RECORDS SUMMARY | 2024-11-02 08:04 | XMS_ITS | Clinical Summary ---
Author Organization [facility] Address [address] [place] [address] Care Team Providers Care Occupational Nurse Name Role Phone Unavailable Primary Care Provider [...]
--- OUTSIDE RECORDS SUMMARY | 2024-11-02 08:04 | XMS_ITS | Clinical Summary ---
Author Organization Formerly [facility] Address [address] [place] [address] Care Team Providers Care Molding And Trim Installer Name Role Phone Jack Quijano MD Primary Care Provider Unava ilable Allergies Active Allergy Reactions Criticality Noted Date Comments Sulfa Antibiotics Other (See Comments) 08/29/19 Unknown, since was younger Medications warfarin (COUMADIN) 5 MG tablet Take 5 mg by mouth daily at the same time. Active predniSONE (DELTASONE) 20 MG tabletIndicatio ns:Olecranon bursitis of left elbow Take 3 tablets [...] Recorded Sex Assigned at Not on file Legal Sex Male 11:51 AM EST Gender Identity Not on file Sexual Orientation [...] Colonoscopy 2023 Influenza Vaccine 02/09/2024 COVID-19 Vaccine (1 - 2023-2 5 season) 2024 Pneumococcal Vaccine: Pediat mauro (0-5 Years) and At-Risk Patients (6 to 49 Years) Aged Out No longer eligible b ased on patient's age to complete this topic Insurance [facility] Care Teams Molding And Trim Installer Relationship Specialty Start Date End Date Jack Quijano MD PCP - General 08/29/18
[2024-11-02 08:09] LABS: Prothrombin Time Whole Bld POC 26.1 sec (11.1-13.5); ~PT, ~INR - Anti Coag Clinic 2.2 (0.9-1.1)
--- NOTE | 2024-11-02 08:12 | MHC.OFFVISCO ---
Intake Intake Visit Reasons: Anticoagulation Allergies Sulfa (Sulfonamide Antibiotics) Allergy (Mild, Verified 11/02/24 08:02) pt not sure happened has a child Medication List - Last Reconciled 11/02/24 by Ani Valverde RN cetirizine (Zyrtec) 10 mg PO DAILY PRN losartan 75 mg PO DAILY multivit,davina,ue-cpkxr-U0-lycop 240-25-300 mcg (One A Day Men Complete) tabs PO warfarin 5 mg See Protocol PO DAILY Nursing Note INR: 2.2 in therapeutic range Medications and supplements reviewed No changes in health, diet, medications, or supplements, Denies any signs and symptoms of bleeding or bruising or clotting. Bleeding, bruising, clotting discussed Nutritional guidance given Dose: same F/U INR: 4 weeks Patient verbalizes understanding of instructions given Coding Level of Care Code Est Patient Level 1 Diagnoses Current use of anticoagulant therapy Z79.01 Assessment & Plan Assessment & Plan (1) Current use of anticoagulant therapy: Code(s): Z79.01 - [facility] (current) use of anticoagulants Category: Medical
== END 2024-11-02 08:13 | disposition home or self-care (01) ==
LOC: HO.ACS 08:01
PROVIDERS: PCP Pediatrics; Visit Provider Internal Medicine Medical Oncology
DX: Z79.01 Long term (current) use of anticoagulants (principal)

== ENCOUNTER → 2024-11-02 08:01 | Outpatient (BNVA) | payer BC, SELFPAY | PROVIDERS: PCP Pediatrics; Visit Provider Internal Medicine Medical Oncology | DX: I26.99 Other pulmonary embolism without acute cor pulmonale (principal); Z51.81 Encounter for therapeutic drug level monitoring; Z79.01 Long term (current) use of anticoagulants | CPT/HCPCS: 85610; 99211 ==

== ENCOUNTER 2024-11-30 08:01 | Outpatient (AMB) | payer BC, SELFPAY ==
--- OUTSIDE RECORDS SUMMARY | 2024-11-30 08:03 | XMS_ITS | Clinical Summary ---
Author Organization [facility] Address [address] [place] [address] Care Team Providers Care Tube Heater Name Role Phone Unavailable Primary Care Provider [...]
[2024-11-30 08:07] LABS: Prothrombin Time Whole Bld POC 25.8 sec (11.1-13.5); ~PT, ~INR - Anti Coag Clinic 2.2 (0.9-1.1)
--- NOTE | 2024-11-30 08:10 | MHC.OFFVISCO ---
Intake Intake Visit Reasons: Anticoagulation Allergies Sulfa (Sulfonamide Antibiotics) Allergy (Mild, Verified 11/30/24 08:02) pt not sure happened has a child Medication List - Last Reconciled 11/30/24 by eKiry Coker, DAVI cetirizine (Zyrtec) 10 mg PO DAILY PRN losartan 75 mg PO DAILY multivit,davina,pi-kjylk-N2-lycop 240-25-300 mcg (One A Day Men Complete) tabs PO warfarin 5 mg See Protocol PO DAILY Nursing Note INR: 2.2 in therapeutic range of 2-3 Medications and supplements reviewed No changes in health, diet, medications, or supplements, Denies any signs and symptoms of bleeding or bruising or clotting. Bleeding, bruising, clotting discussed Nutritional guidance given Dose: 5mg X 5 days and 7.5mg X 2 days (Mon & ) F/U INR: 4 weeks Patient verbalizes understanding of instructions given Coding Level of Care Code Est Patient Level 1 Diagnoses Current use of anticoagulant therapy Z79.01 Assessment & Plan Assessment & Plan (1) Current use of anticoagulant therapy: Code(s): Z79.01 - termite control representative (current) use of anticoagulants Category: Medical
== END 2024-11-30 08:11 | disposition home or self-care (01) ==
LOC: HO.ACS 08:01
PROVIDERS: PCP Pediatrics; Visit Provider Internal Medicine Medical Oncology
DX: Z79.01 Long term (current) use of anticoagulants (principal)

== ENCOUNTER → 2024-11-30 08:01 | Outpatient (BNVA) | payer BC, SELFPAY | PROVIDERS: PCP Pediatrics; Visit Provider Internal Medicine Medical Oncology | DX: I26.99 Other pulmonary embolism without acute cor pulmonale (principal); Z51.81 Encounter for therapeutic drug level monitoring; Z79.01 Long term (current) use of anticoagulants | CPT/HCPCS: 85610; 99211 ==

== ENCOUNTER 2024-12-28 08:05 | Outpatient (AMB) | payer BC, SELFPAY ==
--- OUTSIDE RECORDS SUMMARY | 2024-12-28 08:08 | XMS_ITS | Clinical Summary ---
Author Organization [facility] Address [address] [place] [address] Care Team Providers Care Industrial Machine Operator Name Role Phone Chasity Quijano MD Primary Care Provider [phone] Allergies Active Allergy Reactions Criticality Noted Date Comments Sulfa (Sulfonamide Antibiotics) Rash 09/2012 Told in childhood Medications warfarin (COUMADIN) 5 mg tablet TAKE ONE TO ONE AND ONE-HALF TABLETS DAILY. MAY CAUSE HEAVY BLEEDING. TAKE AT SAME TIME EVERY DAY. DO NOT CHANGE DIETARY HABITS 135 tablet 5 Active losartan (COZAAR) 50 mg tablet TAKE ONE AND ONE-HALF TABLETS DAILY 45 tablet 5 Active losartan (COZAAR) 50 mg tablet TAKE ONE AND ONE-HALF TABLETS DAILY 135 tablet 1 4 12/26/19 25 Discontinued losartan (COZAAR) 50 mg tablet 4 12/26/19 25 Discontinued warfarin (COUMADIN) 5 mg tablet TAKE ONE TO ONE AND ONE-HALF TABLETS DAILY. MAY CAUSE HEAVY BLEEDING. TAKE AT SAME TIME EVERY DAY. DO NOT CHANGE DIETARY HABITS 135 tablet 5 12/15/19 25 Discontinued Active Problems Problem Noted Date Diagnosed Date Elevated LDL cholesterol level 02/01/2022 Overview (07/30/2024): 01/29. ASCVD 2.6% Obesity (BMI 30-39.9) 01/28/2022 Elevated blood pressure reading 01/28/2022 Hearing loss 02/08/2013 Overview (07/30/2024): Left cholesteatoma Pulmonary embolism (CMS/HCC V24, CMS/HCC V28) Overview (07/30/2024): 2006 Factor 5 Leiden mutation, heterozygous (CMS/HCC V24) 01/10/2013 Overview (07/30/2024): Indefinite anticoagulation Encounters Date Type Department Care Team Description 12/07/2024 Nurse Triage Adult [address] [id number] Chasity Quijano MD Herpes Zoster (Shingles) from Last 3 Months Immunizations Name Administration Dates Next Due Influenza trivalent, 0.5mL, preservative free (Fluarix; FluLaval; Fluzone) ages 6mo and older (Afluria) 3 years and older 07/16/2013 Influenza, Unspecified 05/11/2018 Pfizer SARS-CoV-2 COVID-19, mRNA, LNP-S, preservative free 11/20/2020,10/29/2020 Tdap Tetanus diptheria acell ular pertussis (Boostrix; Adacel) 7yo and older 04/05/2024,07/16/2013 Surgical History Surgery Date Site/Laterality Comments EYE SURGERY PROCEDURE: HISTORICAL EYE SURGERY OTHER SURGICAL HISTORY 1988 PROCEDURE: HISTORICAL EAR SURGERY; COMMENT: cholesteatoma Medical History Medical History Date Comments Factor 5 Leiden mutation, heterozygous ([facility]/HCC V24) 01/10/2013 DX:Factor 5 Leiden mutation , heterozygous (HCC); COMMENT: Indefinite anticoagulation Pulmonary embolism (CMS/HCC V24, CMS/HCC V28) 01/10/2013 DX:Pulmonary embolism (HCC); COMMENT: 2006 Hearing loss 02/08/2013 DX:Hearing loss; COMMENT: Left cholesteatoma Family History Medical History Relation Name Comments Other: pulmonary embolism Father 53 ? factor 5 Leiden mutation and PE Stroke Maternal Grandmother No Known Problems Mother No Known Problems Sister Relation Name Status Comments Father Maternal Grandfather Maternal Grandmother Mother Alive Paternal Grandfather Paternal Grandmother Sister Alive Social History Tobacco Use Types Packs/Day Years Used Date Smoking Tobacco: Never Smokeless Tobacco: Never Alcohol Use Standard Drinks/Week Comments Yes 0 (1 standard drink = 0.6 oz pur e alcohol) Sex and Gender Information Value Date Recorded Sex Assigned at Not on file Legal Sex Male 7:56 PM EST Gender Identity Not on file Sexual Orientation Not on file Obstetrics History Last Filed Vital Signs Vital Sign Reading Time Taken Comments Blood Pressure 122/82 04/05/2024 2:55 PM EDT Pulse 90 04/05/2024 2:46 PM EDT Temperature - - Respiratory Rate - - Oxygen Saturation - - Inhaled Oxygen Concentration - - Weight 97.5 kg (215 lb) 04/05/2024 2:46 PM EDT Height 185.4 cm (6' 1 ) 04/05/2024 2:46 PM EDT Body Mass Index 28.37 04/05/2024 2:46 PM EDT Plan of Treatment Upcoming Encounters Date Type Department Care Team (Late st Contact Info) Description 01/16/2025 8:30 AM EDT Office Visit Adult Medicine - [address] [phone] Anne Rivas, [address] [place] [address] Health Maintenance Due Date Last Done Comments Hepatitis B Vaccines (1 of 3 - 19+ 3-dose series) 1997 Colorectal Cancer Screening: Colonoscopy 06/12/2022 Depression Screening 06/12/2022 HIV Screening 06/12/2022 Hepatitis C Screening 06/12/2022 Social Influencers of Health Screening 06/12/2022 COVID-19 Vaccine ( - 2023-2 5 season) 2024 11/20/2020, 10/29/2020 Influenza Vaccine (Season Ended) 2025 05/11/2018, 07/16/2013 Hypertension/CHF/CAD Annual BMP Blood Test 04/13/2025 04/13/2024, 04/13/2024 Cholesterol Screening (Lipid Panel) 04/13/2029 04/13/2024, 04/13/2024 DTaP,Tdap,and Td Vaccines (3 - Td or Tdap) 04/05/2034 04/05/2024, 07/16/2013 HIB Vaccines Aged Out No longer eligi ble based on patient's age to complete this topic HPV Vaccines Aged Out No longer eligi ble based on patient's age to complete this topic Hepatitis A Vaccines Aged Out No long er eligible based on patient's age to complete this topic IPV Vaccines Aged Out No longer eligi ble based on patient's age to complete this topic MMR Vaccines Aged Out No longer eligi ble based on patient's age to complete this topic Meningococcal ACWY Vaccine Aged Out N o longer eligible based on patient's age to complete this topic Meningococcal B Vaccine Aged Out No l onger eligible based on patient's age to complete this topic Pneumococcal Vaccine: Pediatrics (0 to 5 Years) and At-Risk Patients (6 to 64 Years) Aged Out No longer eligible b ased on patient's age to complete this topic RSV Immunization Patients Under 20 months Aged Out No longer eligible b ased on patient's age to complete this topic Varicella Vaccines Aged Out No longer eligible based on patient's age to complete this topic Procedures Procedure Name Priority Date/Time Associated Diagnosis Comments ANNUAL BMP BLOOD TEST Routine 04/13/2024 LIPID PANEL Routine 04/13/2024 from Last 3 Months or Most Recently Relevant to Health Maintenance Results * Annual BMP Blood Test (04/13/2024) Pathologist [facility] Annual BMP Blood Test abstracted Historical Provider HEALTH MAINTENANCE Final Result * (ABNORMAL) Lipid panel (04/13/2024) Pathologist [facility] LDL/HDL Ratio 5(A) 0 - 4 Triglycerides 115 0 - 150 mg/dL Cholesterol 188 0 - 200 mg/dL HDL 39(A) >=40 mg/dL LDL Cholesterol 126(A) 0 - 100 mg/dL Blood Venous blood specimen / Unknown Historical Provider LAB BLOOD ORDERABLES Dianne l Result from Last 3 Months or Most Recently Relevant to Health Maintenance Insurance [facility] Care Teams Industrial Machine Operator Relationship Specialty Start Date End Date Chasity Quijano MD [address] [place] [id number] PCP - General Internal Medicine 12/20/12
[2024-12-28 08:12] LABS: Prothrombin Time Whole Bld POC 26.7 sec (11.1-13.5); ~PT, ~INR - Anti Coag Clinic 2.2 (0.9-1.1)
--- NOTE | 2024-12-28 08:17 | MHC.OFFVISCO ---
Intake Intake Visit Reasons: Anticoagulation Allergies Sulfa (Sulfonamide Antibiotics) Allergy (Mild, Verified 12/28/24 08:06) pt not sure happened has a child Medication List - Last Reconciled 12/28/24 by Ani Valverde RN cetirizine (Zyrtec) 10 mg PO DAILY PRN losartan 75 mg PO DAILY multivit,davina,jz-bidcf-Q5-lycop 240-25-300 mcg (One A Day Men Complete) tabs PO warfarin 5 mg See Protocol PO DAILY Nursing Note INR: 2.2 in therapeutic range( has a daughter that has a heart condition- he has increase stress and concerns ) Medications and supplements reviewed No changes in health, diet, medications, or supplements, Denies any signs and symptoms of bleeding or bruising or clotting. Bleeding, bruising, clotting discussed Nutritional guidance given Dose: same 7.5mg x 2 days/ 5mg x 5 days F/U INR: 1 month Patient verbalizes understanding of instructions given Questionnaires HAS-BLED Does the patient had uncontrolled Hypertension?: No Does the patient have renal disease?: No Does the patient have liver disease?: No Does the patient have a history of stroke?: No Has the patient had major bleeding or predisposition to bleeding?: No Does the patient have labile INRs?: No Is the patient over 65 years of age?: No Is the patient on medications that gives them a predisposition to bleeding?: Yes Does the patient use alcohol?: No HAS-BLED Score: 1 CHADSVASC Age: <65 Gender: Male Does the patient have a history of CHF?: No Does the patient have a history of Hypertension?: Yes Does the patient have a history of Stroke/TIA/Thromboembolism?: Yes (PE) Does the patient have a history of Vascular Disease (prior CA, PAD or aortic plaque)?: No Does the patient have a history of Diabetes?: No CHADS VACS Score: 3 Cristina Prediction Score Rsk VTE Active Cancer: No Previous VTE, excluding superficial vein thrombosis: Yes Reduced mobility: No Already known Thrombophilic Condition: Yes With-in last month Trauma and/or Surgery: No Elderly 70 year or older: No Heart and/or Respiratory Failure: No Acute Myocardial infarction and/or Ischemic Stroke: No Acute Infection and/or Rheumatologic Disorder: No Obesity (BMI 30 or greater): No Ongoing Hormonal Treatment: No Score: 6 Cristina Score less than 4; Low Risk of VTE Cristina Score 4 or greater; High Risk of VTE Coding Level of Care Code Est Patient Level 1 Diagnoses Current use of anticoagulant therapy Z79.01 Assessment & Plan Assessment & Plan (1) Current use of anticoagulant therapy: Code(s): Z79.01 - [facility] (current) use of anticoagulants Category: Medical
== END 2024-12-28 08:19 | disposition home or self-care (01) ==
LOC: HO.ACS 08:05
PROVIDERS: PCP Pediatrics; Visit Provider Internal Medicine Medical Oncology
DX: Z79.01 Long term (current) use of anticoagulants (principal)

== ENCOUNTER → 2024-12-28 08:05 | Outpatient (BNVA) | payer BC, SELFPAY | PROVIDERS: PCP Pediatrics; Visit Provider Internal Medicine Medical Oncology | DX: I26.99 Other pulmonary embolism without acute cor pulmonale (principal); Z79.01 Long term (current) use of anticoagulants; Z51.81 Encounter for therapeutic drug level monitoring | CPT/HCPCS: 85610; 99211 ==

== ENCOUNTER 2025-01-25 08:03 | Outpatient (AMB) | payer BC, SELFPAY ==
--- OUTSIDE RECORDS SUMMARY | 2025-01-25 08:05 | XMS_ITS | Clinical Summary ---
Author Organization [facility] [address] [facility] lding Address [address] [place] [address] Phone Care Team Providers Care Cost Accounting Clerk Name Role Phone Chasity Quijano MD Primary Care Provider Allergies Active Allergy Reactions Criticality Noted Date Comments Sulfa (Sulfonamide Antibiotics) Rash 09/2012 Told in childhood Medications warfarin (COUMADIN) 5 mg tablet TAKE ONE TO ONE AND ONE-HALF TABLETS DAILY. MAY CAUSE HEAVY BLEEDING. TAKE AT SAME TIME EVERY DAY. DO NOT CHANGE DIETARY HABITS 135 tablet 12/14/2024 Active losartan (COZAAR) 50 mg tablet TAKE ONE AND ONE-HALF TABLETS DAILY 45 tablet 12/25/2024 Active Active Problems Problem Noted Date Diagnosed Date Elevated LDL cholesterol level 02/01/2022 Overview (07/30/2024): 01/29. ASCVD 2.6% Obesity (BMI 30-39.9) 01/28/2022 Elevated blood pressure reading 01/28/2022 Hearing loss 02/08/2013 Overview (07/30/2024): Left cholesteatoma Pulmonary embolism ([facility] V24, [facility] V28) Overview (07/30/2024): 2007 Factor 5 Leiden mutation, heterozygous ([facility] V24) 01/10/2013 Overview (07/30/2024): Indefinite anticoagulation Encounters Date Type Department Care Team Description 01/09/2025 Telephone Adult [facility] [address] [place] [address] Chasity Quijano MD Faxed Order Anti-Coag Renewal 12/07/2024 Nurse Triage Adult [facility] [address] [place] [address] Chasity Quijano MD Herpes Zoster (Shingles) from [...] Date Comments Factor 5 Leiden mutation, heterozygous (CMS/HCC V24) 01/10/2013 DX:Factor 5 Leiden mutation , [...] drink = 0.6 oz pur e alcohol) Housing Instability Answer Date Recorde d Are you worried that in the next 2 months you may not have stable housing? No 01/09/2025 Food Access & Nutrition Answer Date Rec orded Do you have access to a vari ety of food including fruits and vegetables? Yes 01/09/2025 Access to Healthcare Answer Date Record ed Within the last 3 months, ho w many times did you visit the emergency department for your medical care? 0 01/09/2025 Health Literacy Answer Date Recorded How often do you need to hav e someone help you when you read instructions, pamphlets, or other written material from your doctor or pharmacy? Never 01/09/2025 Caregiver: How often do you need to have someone help you when you read instructions, pamphlets, or other written material from your doctor or pharmacy? Not on file 01/09/2025 Financial Risk Answer Date Recorded How hard is it for you to pa y for the very basics like food, housing, medical care, and air conditioning / heating? Not very hard 01/09/2025 Transportation Answer Date Recorded Has the lack of transportati on kept you from meetings, work, or from getting things needed for daily living? No Has the lack of transportati on kept you from medical appointments or from getting medications? No 01/09/2025 Social Isolation Answer Date Recorded How often do you feel lonely or isolated from th ose around you? Never 01/09/2025 Food Risk Answer Date Recorded Within the past 12 months we worried whether our food would run out before we got money to buy more. Never true 01/09/2025 Within the past 12 months th e food we bought just didn't last and we didn't have money to get more. Never true 01/09/2025 Dependent Care Answer Date Recorded Do you need help finding or paying for care for your loved ones. For example, childcare worker or elderly care for an older adult? No 01/09/2025 Education Answer Date Recorded Do you think completing more education or training, like finishing a GED, going to college, or learning a trade, would be helpful for you? No 01/09/2025 Employment and Income Answer Date Recor ded During the last four weeks, have you been actively looking for work? No 01/09/2025 Living Situation Answer Date Recorded What is your living situation? 0 01/09/2025 Sex and Gender Information Value Date Recorded [...] Upcoming Encounters Date Type Department Care Team ([facility] st Contact Info) Description 02/05/2025 8:30 AM EDT Office Visit Adult Medicine - [address] [phone] Anne Rivas NP [address] [place] [address] Health Maintenance Due Date Last Done Comments Hepatitis B Vaccines (1 of 3 - 19+ 3-dose series) 1997 Colorectal Cancer Screening: Colonoscopy 06/12/2022 HIV Screening 06/12/2022 Hepatitis C Screening 06/12/2022 COVID-19 Vaccine (3 - 2023-2 5 season) 2024 11/20/2020, 10/29/2020 Influenza Vaccine (#1) 2025 8, 07/16/2013 Hypertension/CHF/CAD Annual BMP Blood Test 04/13/2025 04/13/2024, 04/13/2024 Social Influencers of Health Screening 01/09/2026 01/09/2025 Cholesterol Screening (Lipid Panel) 04/13/2029 04/13/2024, 04/13/2024 DTaP,Tdap,and Td Vaccines (3 - Td or Tdap) 04/05/2034 04/05/2024, 07/16/2013 Depression Screening Completed 01/09/2025 HIB Vaccines Aged Out No longer eligi [...] 5 Years) and At-Risk Patients (6 to 49 [...] Annual BMP Blood Test (04/13/2024) Pathologist [facility] Annual BMP Blood Test abstracted Historical Provider HEALTH MAINTENANCE Final Result * (ABNORMAL) Lipid panel (04/13/2024) Pathologist [facility] LDL/HDL Ratio 5(A) 0 - 4 Triglycerides 115 0 - 150 mg/dL Cholesterol 188 0 - 200 mg/dL HDL 39(A) >=40 mg/dL LDL Cholesterol 126(A) 0 - 100 mg/dL Blood Venous blood specimen / Unknown Historical Provider LAB BLOOD ORDERABLES Dianne l Result from Last 3 Months or Most Recently Relevant to Health Maintenance Insurance [facility] Care Teams Cost Accounting Clerk Relationship Specialty Start Date End Date Chasity Quijano MD [address] [place] [id number] PCP - General Internal Medicine 12/20/12
--- OUTSIDE RECORDS SUMMARY | 2025-01-25 08:05 | XMS_ITS | Clinical Summary ---
Author Organization [facility] Address [address] [place] [address] Care Team Providers Care Trash Hauler Name Role Phone Jack Quijano MD Primary [...] 65 08/29/2018 11:58 AM EST Temperature 36.4 C (97.5 F) 08/29/2018 11:58 AM EST Respiratory Rate - - Oxygen Saturation 98% [...] - 19+ 3-dose series) 1997 Colonoscopy 2023 COVID-19 Vaccine (1 - 2023-2 5 season) 2024 Influenza Vaccine 02/08/2025 Pneumococcal Vaccine: Pediat mauro (0-5 Years) and At-Risk Patients (6 to 49 Years) Aged Out No longer eligible b ased on patient's age to complete this topic Insurance [facility] Care Teams Trash Hauler Relationship Specialty Start Date End Date Jack Quijano MD PCP - General 08/29/18
--- OUTSIDE RECORDS SUMMARY | 2025-01-25 08:05 | XMS_ITS | Clinical Summary ---
Author Organization [facility] Address [address] [place] [address] Care Team Providers Care Back Tender Paper Machine Name Role Phone Unavailable Primary Care Provider [...] 2024 11/20/2020, 10/29/2020 Influenza Vaccine (#1) 2025 07/16/2013 Pneumococcal Vaccine Aged Out No long er eligible based on patient's age to complete this topic RSV Ped < 20 months Aged Out No longe r eligible based on patient's age to complete this topic
[2025-01-25 08:11] LABS: Prothrombin Time Whole Bld POC 23.3 sec (11.1-13.5); ~PT, ~INR - Anti Coag Clinic 1.9 (0.9-1.1)
--- NOTE | 2025-01-25 08:14 | MHC.OFFVISCO ---
Intake Intake Visit Reasons: Anticoagulation Allergies Sulfa (Sulfonamide Antibiotics) Allergy (Mild, Verified 01/25/25 08:06) pt not sure happened has a child Medication List - Last Reconciled 01/25/25 by Keiry Coker, DAVI cetirizine (Zyrtec) 10 mg PO DAILY PRN losartan 75 mg PO DAILY multivit,davina,qk-ojojq-I7-lycop 240-25-300 mcg (One A Day Men Complete) tabs PO warfarin 5 mg See Protocol PO DAILY Nursing Note INR: 1.9 in therapeutic range of 2-3 Medications and supplements reviewed No changes in health, diet, medications, or supplements, Denies any signs and symptoms of bleeding or bruising or clotting. Bleeding, bruising, clotting discussed Nutritional guidance given to avoid greens and to have a serving of foods that raise the INR Dose: 5mg X 5 days and 7.5mg X 2 days F/U INR: 4 weeks Patient verbalizes understanding of instructions given Coding Level of Care Code Est Patient Level 1 Diagnoses Current use of anticoagulant therapy Z79.01 Results AMB INR Fingerstick AMB INR Fingerstick 1.9 Last Edit by Keiry Coker RN on 01/25/25 08:12 interface delay Assessment & Plan Assessment & Plan (1) Current use of anticoagulant therapy: Code(s): Z79.01 - ad terminal makeup operator (current) use of anticoagulants Category: Medical
== END 2025-01-25 08:17 | disposition home or self-care (01) ==
LOC: HO.ACS 08:03
PROVIDERS: PCP Pediatrics; Visit Provider Internal Medicine Medical Oncology
DX: Z79.01 Long term (current) use of anticoagulants (principal)

== ENCOUNTER → 2025-01-25 08:03 | Outpatient (BNVA) | payer BC, SELFPAY | PROVIDERS: PCP Pediatrics; Visit Provider Internal Medicine Medical Oncology | DX: I26.99 Other pulmonary embolism without acute cor pulmonale (principal); Z79.01 Long term (current) use of anticoagulants; Z51.81 Encounter for therapeutic drug level monitoring | CPT/HCPCS: 85610; 99211 ==

== ENCOUNTER 2025-02-22 08:12 | Outpatient (AMB) | payer BC, SELFPAY ==
--- OUTSIDE RECORDS SUMMARY | 2025-02-22 08:16 | XMS_ITS | Clinical Summary ---
Author Organization [facility] Address [address] [place] [address] Care Team Providers Care Telesales Supervisor Name Role Phone Unavailable Primary Care Provider [...]
--- OUTSIDE RECORDS SUMMARY | 2025-02-22 08:16 | XMS_ITS | Clinical Summary ---
Author Organization [facility] [address] [facility] lding Address [address] [place] [address] Phone Care Team Providers Care Arts Therapist Name Role Phone Chasity Quijano MD Primary Care Provider [phone] Allergies Active Allergy Reactions Criticality Noted Date Comments Sulfa (Sulfonamide Antibiotics) Rash 09/2012 Told in childhood Medications losartan (COZAAR) 50 mg tabletIndications :Primary hypertension Take 1.5 tablets (75 mg total) by mouth 1 (one) time each day. 135 each 1 5 08/04/19 26 Active warfarin (COUMADIN) 5 mg tabletIndications :Factor 5 Leiden mutation, heterozygous (CMS/HCC V24) TAKE ONE TO ONE AND ONE-HALF TABLETS DAILY. MAY CAUSE HEAVY BLEEDING. TAKE AT SAME TIME EVERY DAY. DO NOT CHANGE DIETARY HABITS 135 tablet 5 Active warfarin (COUMADIN) 5 mg tablet TAKE ONE TO ONE AND ONE-HALF TABLETS DAILY. MAY CAUSE HEAVY BLEEDING. TAKE AT SAME TIME EVERY DAY. DO NOT CHANGE DIETARY HABITS 135 tablet 5 02/06/20 25 Discontinu ed(Reorder ) losartan (COZAAR) 50 mg tablet TAKE ONE AND ONE-HALF TABLETS DAILY 45 tablet 5 02/06/20 25 Discontinu ed(Reorder ) Active Problems Problem Noted Date Diagnosed Date Elevated LDL cholesterol level 02/01/2022 Overview (07/30/2024): 01/29. ASCVD 2.6% Obesity (BMI 30-39.9) 01/28/2022 Elevated blood pressure reading 01/28/2022 Hearing loss 02/08/2013 Overview (07/30/2024): Left cholesteatoma Pulmonary embolism ([facility] V24, [facility] V28) Overview (07/30/2024): 2007 Factor 5 Leiden mutation, heterozygous ([facility] V24) 01/10/2013 Overview (07/30/2024): Indefinite anticoagulation Encounters Date Type Department Care Team Description 02/05/2025 8:30 AM EDT Office Visit Adult [address] [id number] Anne Rivas NP Factor 5 Leiden mutation, heterozygous ([facility] V24) (Primary Dx); Other chronic pulmonary embolism, unspecified whether acute cor pulmonale present ([facility] V24, [facility] V28); Primary hypertension; Hypercholesterolemia 01/09/2025 Telephone Adult [address] [phone] Chasity Quijano MD Faxed Order Anti-Coag Renewal 12/07/2024 Nurse Triage Adult [address] [phone] Chasity Quijano MD Herpes Zoster (Shingles) [...] PROCEDURE: HISTORICAL EYE SURGERY OTHER SURGICAL HISTORY 1987 PROCEDURE: HISTORICAL EAR SURGERY; COMMENT: cholesteatoma Medical [...] Never Alcohol Use Standard Drinks/Week Comments Yes 4 (1 standard drink = 0.6 oz pur e alcohol) Housing Instability Answer Date Recorde d Are you worried that in the next 2 months you may not have stable housing? No 02/04/2025 Food Access & Nutrition Answer Date Rec orded Do you have access to a vari ety of food including fruits and vegetables? Yes 02/04/2025 Access to Healthcare Answer Date Record ed Within the last 3 months, ho w many times did you visit the emergency department for your medical care? 0 02/04/2025 Health Literacy Answer Date Recorded How often do you need to hav e someone help you when you read instructions, pamphlets, or other written material from your doctor or pharmacy? Never 02/04/2025 Caregiver: How often do you need to have someone help you when you read instructions, pamphlets, or other written material from your doctor or pharmacy? Not on file 02/04/2025 Financial Risk Answer Date Recorded How hard is it for you to pa y for the very basics like food, housing, medical care, and air conditioning / heating? Not very hard 02/04/2025 Transportation Answer Date Recorded Has the lack of transportati on kept you from meetings, work, or from getting things needed for daily living? No Has the lack of transportati on kept you from medical appointments or from getting medications? No 02/04/2025 Social Isolation Answer Date Recorded How often do you feel lonely or isolated from th ose around you? Never 02/04/2025 Food Risk Answer Date Recorded Within the past 12 months we worried whether our food would run out before we got money to buy more. Never true 02/04/2025 Within the past 12 months th e food we bought just didn't last and we didn't have money to get more. Never true 02/04/2025 Dependent Care Answer Date Recorded Do you need help finding or paying for care for your loved ones. For example, child care cook or elderly care for an older adult? No 02/04/2025 Education Answer Date Recorded Do you think completing more education or training, like finishing a GED, going to college, or learning a trade, would be helpful for you? No 02/04/2025 Employment and Income Answer Date Recor ded During the last four weeks, have you been actively looking for work? No 02/04/2025 Living Situation Answer Date Recorded What is your living situation? 0 02/04/2025 Sex and Gender Information Value Date Recorded Sex Assigned at Not on file Legal Sex Male 7:56 PM EST Gender Identity Not on file Sexual Orientation Not on file Obstetrics History Last Filed Vital Signs Vital Sign Reading Time Taken Comments Blood Pressure 120/80 02/05/2025 8:50 AM EDT Pulse 101 02/05/2025 8:37 AM EDT Temperature 36.9 C (98.5 F) 02/05/2025 8:37 AM EDT Respiratory Rate - - Oxygen Saturation - - Inhaled Oxygen Concentration - - Weight 102 kg (225 lb) 02/05/2025 8:37 AM EDT Height 185.4 cm (6' 1 ) 02/05/2025 8:37 AM EDT Body Mass Index 29.69 02/05/2025 8:37 AM EDT Plan of Treatment Health Maintenance Due Date Last Done Comments Hepatitis B Vaccines (1 of 3 - 19+ 3-dose series) 1997 Colorectal Cancer Screening: Colonoscopy 06/12/2022 HIV Screening 06/12/2022 Hepatitis C Screening 06/12/2022 COVID-19 Vaccine (2023-2 5 season) 2024 07/27/2021, 11/20/2020, 10/29/2020 Influenza Vaccine (#1) 2025 8, 07/16/2013 Hypertension/CHF/CAD Annual BMP Blood Test 04/13/2025 04/13/2024, 04/13/2024 Social Influencers of Health Screening 02/04/2026 02/04/2025 Cholesterol Screening (Lipid Panel) 04/13/2029 04/13/2024, 04/13/2024 DTaP,Tdap,and Td Vaccines (3 - Td or Tdap) 04/05/2034 04/05/2024, 07/16/2013 Depression Screening Completed 02/04/2025 HIB Vaccines Aged Out No longer eligi [...] Results * Annual BMP Blood Test (04/13/2024) Annual BMP Blood Test abstracted us Historical Provider MD HEALTH MAINTENANCE Final Result * (ABNORMAL) Lipid panel (04/13/2024) LDL/HDL Ratio 5(A) 0 - 4 Triglycerides 115 0 - 150 mg/dL Cholesterol 188 0 - 200 mg/dL HDL 39(A) >=40 mg/dL LDL Cholesterol 126(A) 0 - 100 mg/dL Blood Venous blood specimen / Unknown us Historical Provider LAB BLOOD ORDERABLES Dianne l Result from Last 3 Months or Most Recently Relevant to Health Maintenance Insurance [facility] Care Teams Arts Therapist Relationship Specialty Start Date End Date Chasity Quijano MD [address] [place] [id number] PCP - General Internal Medicine 12/20/12
--- OUTSIDE RECORDS SUMMARY | 2025-02-22 08:16 | XMS_ITS | Clinical Summary ---
Author Organization [facility] Address [address] [place] [address] Care Team Providers Care Stapler Machine Name Role Phone Jack Quijano MD Primary Care Provider Unava ilable Allergies Active Allergy Reactions Criticality Noted Date Comments Sulfa Antibiotics Other (See Comments) 08/29/19 19 Unknown, since was younger Medications warfarin (COUMADIN) [...] patient's age to complete this topic Insurance [facility] Care Teams Stapler Machine Relationship Specialty Start Date End Date Jack Quijano MD PCP - General 08/29/18
[2025-02-22 08:21] LABS: Prothrombin Time Whole Bld POC 31.9 sec (11.1-13.5); ~PT, ~INR - Anti Coag Clinic 2.7 (0.9-1.1)
--- NOTE | 2025-02-22 08:25 | MHC.OFFVISCO ---
Intake Intake Visit Reasons: Anticoagulation Allergies Sulfa (Sulfonamide Antibiotics) Allergy (Mild, Verified 02/22/25 08:15) pt not sure happened has a child Medication List - Last Reconciled 02/22/25 by Lavern Hoyos RN cetirizine (Zyrtec) 10 mg PO DAILY PRN losartan 75 mg PO DAILY multivit,davina,mf-rocca-S3-lycop 240-25-300 mcg (One A Day Men Complete) tabs PO warfarin 5 mg See Protocol PO DAILY Nursing Note NO CP,SOB,DIET/MED CHANGES,FALLS OR SX OF BLEEDING. CONTINUE PRESENT DOSE AND FOLLOW-UP IN 4 WEEKS GOOD UNDERSTANDING OF DOSING INSTR. Coding Level of Care Code Est Patient Level 1 Diagnoses Current use of anticoagulant therapy Z79.01 Assessment & Plan Assessment & Plan (1) Current use of anticoagulant therapy: Code(s): Z79.01 - long-term (current) use of anticoagulants Category: Medical
== END 2025-02-22 08:59 | disposition home or self-care (01) ==
LOC: HO.ACS 08:12
PROVIDERS: PCP Pediatrics; Visit Provider Internal Medicine Medical Oncology
DX: Z79.01 Long term (current) use of anticoagulants (principal)

== ENCOUNTER → 2025-02-22 08:12 | Outpatient (BNVA) | payer BC, SELFPAY | PROVIDERS: PCP Pediatrics; Visit Provider Internal Medicine Medical Oncology | DX: Z51.81 Encounter for therapeutic drug level monitoring (principal); Z79.01 Long term (current) use of anticoagulants | CPT/HCPCS: 85610; 99211 ==

== ENCOUNTER 2025-03-22 07:59 | Outpatient (AMB) | payer BC, SELFPAY ==
--- OUTSIDE RECORDS SUMMARY | 2025-03-22 08:01 | XMS_ITS | Clinical Summary ---
Author Organization [facility] Address [address] [place] [address] Care Team Providers Care Driller Multiple Spindle Name Role Phone Unavailable Primary Care Provider [...] Td or Tdap) 07/16/2023 07/16/2013 COVID-19 Vaccine (3 2024-2 6 season) 2025 11/20/2020, 10/29/2020 Influenza Vaccine (#1) 2025 07/16/2013 Pneumococcal Vaccine Aged Out No long er eligible based on patient's age to complete this topic RSV Ped < 20 months Aged Out No longe r eligible based on patient's age to complete this topic
--- OUTSIDE RECORDS SUMMARY | 2025-03-22 08:01 | XMS_ITS | Clinical Summary ---
Author Organization [facility] Address [address] [place] [address] Care Team Providers Care Manager Document Name Role Phone Jack Quijano MD Primary [...] 3-dose series) 1997 Colonoscopy 2023 Influenza Vaccine 02/08/2025 COVID-19 Vaccine (1 - 2023-2 5 season) 2025 Pneumococcal Vaccine: Pediat mauro (0-5 Years) and At-Risk Patients (6 to 49 Years) Aged Out No longer eligible b ased on patient's age to complete this topic Insurance [facility] Care Teams Manager Document Relationship Specialty Start Date End Date Jack Quijano MD PCP - General 08/29/18
--- OUTSIDE RECORDS SUMMARY | 2025-03-22 08:01 | XMS_ITS | Clinical Summary ---
Author Organization [facility] [address] [facility] lding Address [address] [place] [address] Phone Care Team Providers Care Manager Labor Delivery Name Role Phone Chasity Quijano MD Primary Care Provider [phone] Allergies Active Allergy Reactions Criticality Noted Date Comments Sulfa (Sulfonamide Antibiotics) Rash 09/2012 Told in childhood Medications losartan (COZAAR) 50 mg tabletIndications :Primary hypertension Take 1.5 tablets (75 mg total) by mouth 1 (one) time each day. 135 each 1 5 08/04/19 26 Active warfarin (COUMADIN) 5 mg tabletIndications :Factor 5 Leiden mutation, heterozygous ([facility] V24) TAKE ONE TO ONE AND ONE-HALF TABLETS DAILY. MAY CAUSE HEAVY BLEEDING. TAKE AT SAME TIME EVERY DAY. DO NOT CHANGE DIETARY HABITS 135 tablet 5 Active Active Problems Problem Noted Date Diagnosed Date Elevated LDL cholesterol level 02/01/2022 Overview (07/30/2024): 01/29. ASCVD 2.6% Obesity (BMI 30-39.9) 01/28/2022 Elevated blood pressure reading 01/28/2022 Hearing loss 02/08/2013 Overview (07/30/2024): Left cholesteatoma Pulmonary embolism ([facility] V24, [facility] V28) Overview (07/30/2024): 2006 Factor 5 Leiden mutation, heterozygous (CMS/HCC V24) 01/10/2013 Overview (07/30/2024): Indefinite anticoagulation Encounters Date Type Department Care Team Description 02/05/2025 8:30 AM EDT Office Visit [facility] [address] [place] [phone] Anne Rivas NP Factor 5 Leiden mutation, heterozygous (CMS/HCC V24) (Primary Dx); Other chronic pulmonary embolism, unspecified whether acute cor pulmonale present (CMS/HCC V24, CMS/HCC V28); Primary hypertension; Hypercholesterolemia 01/09/2025 Telephone Adult Medicine [facility] [address] [place] [phone] Chasity Quijano MD from Last 3 Months Immunizations Name Administration [...] for your loved ones. For example, child and adolescent psychiatrist or elderly care for an older adult? [...] 06/12/2022 Hepatitis C Screening 06/12/2022 COVID-19 Vaccine (4 - 2024-2 6 season) 2025 07/27/2021, 11/20/2020, 10/29/2020 Influenza Vaccine (#1) 2025 [...] Result * (ABNORMAL) Lipid panel (04/13/2024) Pathologist [facility] LDL/HDL Ratio 5(A) 0 - 4 Triglycerides 115 0 - 150 mg/dL Cholesterol 188 0 - 200 mg/dL HDL 39(A) >=40 mg/dL LDL Cholesterol 126(A) 0 - 100 mg/dL Blood Venous blood specimen / Unknown Historical Provider LAB BLOOD ORDERABLES Dianne l Result from Last 3 Months or Most Recently Relevant to Health Maintenance Insurance [facility] Care Teams Manager Labor Delivery Relationship Specialty Start Date End Date Chasity Quijano MD [address] [place] [address] PCP - General Internal Medicine 12/20/12
[2025-03-22 08:09] LABS: Prothrombin Time Whole Bld POC 30.9 sec (11.1-13.5); ~PT, ~INR - Anti Coag Clinic 2.6 (0.9-1.1)
--- NOTE | 2025-03-22 08:10 | MHC.OFFVISCO ---
Intake Intake Visit Reasons: Anticoagulation Allergies Sulfa (Sulfonamide Antibiotics) Allergy (Mild, Verified 03/22/25 08:02) pt not sure happened has a child Medication List - Last Reconciled 03/22/25 by Keiry Coker, DAVI cetirizine (Zyrtec) 10 mg PO DAILY PRN losartan 75 mg PO DAILY multivit,davina,hv-xevyo-S5-lycop 240-25-300 mcg (One A Day Men Complete) tabs PO warfarin 5 mg See Protocol PO DAILY Nursing Note INR: 2.6 in therapeutic range of 2-3 Medications and supplements reviewed No changes in health, diet, medications, or supplements, Denies any signs and symptoms of bleeding or bruising or clotting. Bleeding, bruising, clotting discussed Nutritional guidance given Dose: 5mg X 5 days and 7.5mg X 2 days (Mon & ) F/U INR: 4 weeks Patient verbalizes understanding of instructions given Coding Level of Care Code Est Patient Level 1 Diagnoses Current use of anticoagulant therapy Z79.01 Assessment & Plan Assessment & Plan (1) Current use of anticoagulant therapy: Code(s): Z79.01 - middle or intermediate school principal (current) use of anticoagulants Category: Medical
== END 2025-03-22 08:14 | disposition home or self-care (01) ==
LOC: HO.ACS 07:59
PROVIDERS: PCP Pediatrics; Visit Provider Internal Medicine Medical Oncology
DX: Z79.01 Long term (current) use of anticoagulants (principal)

== ENCOUNTER → 2025-03-22 07:59 | Outpatient (BNVA) | payer BC, SELFPAY | PROVIDERS: PCP Pediatrics; Visit Provider Internal Medicine Medical Oncology | DX: Z51.81 Encounter for therapeutic drug level monitoring (principal); Z79.01 Long term (current) use of anticoagulants | CPT/HCPCS: 85610; 99211 ==

== ENCOUNTER 2025-04-18 08:15 | Outpatient (AMB) | payer BC, SELFPAY ==
[2025-04-18 08:36] LABS: Prothrombin Time Whole Bld POC 28.4 sec (11.1-13.5); ~PT, ~INR - Anti Coag Clinic 2.4 (0.9-1.1)
--- NOTE | 2025-04-18 08:38 | MHC.OFFVISCO ---
Intake Intake Visit Reasons: Anticoagulation Allergies Sulfa (Sulfonamide Antibiotics) Allergy (Mild, Verified 04/18/25 08:31) pt not sure happened has a child Medication List - Last Reconciled 04/18/25 by Keiry Coker, DAVI cetirizine (Zyrtec) 10 mg PO DAILY PRN losartan 75 mg PO DAILY multivit,davina,cm-yyvgz-H8-lycop 240-25-300 mcg (One A Day Men Complete) tabs PO warfarin 5 mg See Protocol PO DAILY Nursing Note INR: 2.4 in therapeutic range 2-3 Medications and supplements reviewed No changes in health, diet, medications, or supplements, Denies any signs and symptoms of bleeding or bruising or clotting. Bleeding, bruising, clotting discussed Nutritional guidance given Dose: 5mg X 5 days and 7.5mg X 2 days (Mon & ) F/U INR: 4 weeks Patient verbalizes understanding of instructions given Coding Level of Care Code Est Patient Level 1 Diagnoses Current use of anticoagulant therapy Z79.01 Assessment & Plan Assessment & Plan (1) Current use of anticoagulant therapy: Code(s): Z79.01 - oysterman (current) use of anticoagulants Category: Medical
== END 2025-04-18 08:41 | disposition home or self-care (01) ==
LOC: HO.ACS 08:15
PROVIDERS: PCP Pediatrics; Visit Provider Internal Medicine Medical Oncology
DX: Z79.01 Long term (current) use of anticoagulants (principal)

== ENCOUNTER → 2025-04-18 08:15 | Outpatient (BNVA) | payer BC, SELFPAY | PROVIDERS: PCP Pediatrics; Visit Provider Internal Medicine Medical Oncology | DX: Z51.81 Encounter for therapeutic drug level monitoring (principal); Z79.01 Long term (current) use of anticoagulants | CPT/HCPCS: 85610; 99211 ==

== ENCOUNTER 2025-05-17 07:58 | Outpatient (AMB) | payer BC, SELFPAY ==
--- OUTSIDE RECORDS SUMMARY | 2025-05-17 08:00 | XMS_ITS | Clinical Summary ---
Author Organization [facility] Address [address] [place] [address] Care Team Providers Care Career Specialist Name Role Phone Unavailable Primary Care Provider [...]
--- OUTSIDE RECORDS SUMMARY | 2025-05-17 08:00 | XMS_ITS | Clinical Summary ---
Author Organization [facility] [address] [facility] lding Address [address] [place] [address] Phone Care Team Providers Care Np Name Role Phone Chasity Quijano MD Primary Care Provider Allergies Active Allergy Reactions Criticality Noted Date Comments Sulfa (Sulfonamide Antibiotics) Rash 09/2012 Told in childhood Medications losartan (COZAAR) 50 mg tabletIndications :Primary hypertension Take 1.5 tablets (75 mg total) by mouth 1 (one) time each day. 135 each 1 5 08/04/19 26 Active warfarin (COUMADIN) 5 mg tabletIndications :Factor 5 Leiden mutation, heterozygous ([facility] V24) TAKE ONE TO ONE AND ONE-HALF TABLETS DAILY. MAY CAUSE HEAVY BLEEDING. TAKE AT SAME TIME EVERY DAY. DO NOT CHANGE DIETARY HABITS 135 tablet 5 Active Active Problems Problem Noted Date Diagnosed Date Elevated LDL cholesterol level 02/01/2022 Overview (07/30/2024): 01/29. ASCVD 2.6% Obesity (BMI 30-39.9) 01/28/2022 Elevated blood pressure reading 01/28/2022 Hearing loss 02/08/2013 Overview (07/30/2024): Left cholesteatoma Pulmonary embolism ([facility] V24, [facility] V28) Overview (07/30/2024): 2006 Factor 5 Leiden mutation, heterozygous (CMS/HCC V24) 01/10/2013 Overview (07/30/2024): Indefinite anticoagulation Immunizations Immunization Administration Dates Next Due Influenza trivalent, 0.5mL, [...] for your loved ones. For example, child welfare consultant or elderly care for an older adult? [...] Date Recorded What is your living situation? Unrecognized valu e 02/04/2025 Sex and Gender Information Value Date [...] Health Maintenance Due Date Last Done Comments Colorectal Cancer Screening: Colonoscopy 1978 Hepatitis B Vaccines (1 of 3 - 19+ 3-dose series) 1997 HIV Screening 06/12/2022 Hepatitis C Screening 06/12/2022 COVID-19 Vaccine (2024-2 6 season) 2025 07/27/2021, 11/20/2020, 10/29/2020 Influenza Vaccine (#1) 2025 8, 07/16/2013 Hypertension/CHF/CAD Annual BMP Blood Test 04/13/2025 04/13/2024, 04/13/2024 Social Influencers of Health Screening 02/04/2026 02/04/2025 Cholesterol Screening (Lipid Panel) 04/13/2029 04/13/2024, 04/13/2024 DTaP,Tdap,and Td Vaccines (3 - Td or Tdap) 04/05/2034 04/05/2024, 07/16/2013 RSV Immunization Adult Patients (1 - 1-dose 75+ series) 2053 Depression Screening Completed 02/04/2025 HIB Vaccines Aged [...] * Annual BMP Blood Test (04/13/2024) Pathologist [facility] Annual BMP Blood Test abstracted Historical Provider [...] Most Recently Relevant to Health Maintenance Insurance [facility] Care Teams Np Relationship Specialty Start Date End Date Chasity Quijano MD [address] [place] [phone] PCP - General Internal Medicine 12/20/12
--- OUTSIDE RECORDS SUMMARY | 2025-05-17 08:00 | XMS_ITS | Clinical Summary ---
Author Organization [facility] Address [address] [place] [address] Care Team Providers Care Marzipan Molder Name Role Phone Jack Quijano MD Primary Care Provider + [phone] Allergies Active Allergy Reactions Criticality Noted Date [...] patient's age to complete this topic Insurance [facility] Care Teams Marzipan Molder Relationship Specialty Start Date End Date Jack Quijano MD PCP - General 08/29/18
[2025-05-17 08:09] LABS: Prothrombin Time Whole Bld POC 27.7 sec (11.1-13.5); ~PT, ~INR - Anti Coag Clinic 2.3 (0.9-1.1)
--- NOTE | 2025-05-17 08:10 | MHC.OFFVISCO ---
Intake Intake Visit Reasons: Anticoagulation Allergies Sulfa (Sulfonamide Antibiotics) Allergy (Mild, Verified 05/17/25 08:04) pt not sure happened has a child Medication List - Last Reconciled 05/17/25 by Keiry Coker, DAVI cetirizine (Zyrtec) 10 mg PO DAILY PRN losartan 75 mg PO DAILY multivit,davina,eu-hpnvs-L7-lycop 240-25-300 mcg (One A Day Men Complete) tabs PO warfarin 5 mg See Protocol PO DAILY Nursing Note INR: 2.3 in therapeutic range of 2-3 Medications and supplements reviewed No changes in health, diet, medications, or supplements, Denies any signs and symptoms of bleeding or bruising or clotting. Bleeding, bruising, clotting discussed Nutritional guidance given Dose: 5mg X 5 days and 7.5mg X 2 days (Mon & ) F/U INR: 4 weeks Patient verbalizes understanding of instructions given Coding Level of Care Code Est Patient Level 1 Diagnoses Current use of anticoagulant therapy Z79.01 Assessment & Plan Assessment & Plan (1) Current use of anticoagulant therapy: Code(s): Z79.01 - termite inspector (current) use of anticoagulants Category: Medical
== END 2025-05-17 08:13 | disposition home or self-care (01) ==
LOC: HO.ACS 07:58
PROVIDERS: PCP Pediatrics; Visit Provider Internal Medicine Medical Oncology
DX: Z79.01 Long term (current) use of anticoagulants (principal)

== ENCOUNTER → 2025-05-17 07:58 | Outpatient (BNVA) | payer BC, SELFPAY | PROVIDERS: PCP Pediatrics; Visit Provider Internal Medicine Medical Oncology | DX: Z79.01 Long term (current) use of anticoagulants (principal) | CPT/HCPCS: 85610; 99211 ==

== ENCOUNTER 2025-06-14 08:17 | Outpatient (AMB) | payer BC, SELFPAY ==
[2025-06-14 08:21] LABS: Prothrombin Time Whole Bld POC 26.1 sec (11.1-13.5); ~PT, ~INR - Anti Coag Clinic 2.2 (0.9-1.1)
--- NOTE | 2025-06-14 08:23 | MHC.OFFVISCO ---
Intake Intake Visit Reasons: Anticoagulation Allergies Sulfa (Sulfonamide Antibiotics) Allergy (Mild, Verified 06/14/25 08:17) pt not sure happened has a child Medication List - Last Reconciled 06/14/25 by Keiry Coker, DAVI cetirizine (Zyrtec) 10 mg PO DAILY PRN losartan 75 mg PO DAILY multivit,davina,ef-[id number]-N3-lycop 240-25-300 mcg (One A Day Men Complete) tabs PO warfarin 5 mg See Protocol PO DAILY Nursing Note INR: 2.2 in therapeutic range 2-3 Medications and supplements reviewed No changes in health, diet, medications, or supplements, Denies any signs and symptoms of bleeding or bruising or clotting. Bleeding, bruising, clotting discussed Nutritional guidance given Dose: 5mg X 5 days and 7.5mg X 2 days (Mon & ) F/U INR: 5 weeks Patient verbalizes understanding of instructions given Coding Level of Care Code Est Patient Level 1 Diagnoses Current use of anticoagulant therapy Z79.01 Assessment & Plan Assessment & Plan (1) Current use of anticoagulant therapy: Code(s): Z79.01 - terminal makeup operator (current) use of anticoagulants Category: Medical
== END 2025-06-14 08:26 | disposition home or self-care (01) ==
LOC: HO.ACS 08:17
PROVIDERS: PCP Pediatrics; Visit Provider Internal Medicine Medical Oncology
DX: Z79.01 Long term (current) use of anticoagulants (principal)

== ENCOUNTER → 2025-06-14 08:17 | Outpatient (BNVA) | payer BC, SELFPAY | PROVIDERS: PCP Pediatrics; Visit Provider Internal Medicine Medical Oncology | DX: I26.99 Other pulmonary embolism without acute cor pulmonale (principal); Z51.81 Encounter for therapeutic drug level monitoring; Z79.01 Long term (current) use of anticoagulants | CPT/HCPCS: 85610; 99211 ==